=== PATIENT | female | born 1930 | race Caucasian/White ===

== ENCOUNTER → 2016-10-31 | Outpatient (CLI) | payer MEDICARE ==
[~2016-10-31] MED LIST: ACDPT PO; ACHD5005 PO; ALEN70TA47 PO; AMLO10TA82 PO; ASCO500T20 PO; BETA1TAB PO; CALC-656 PO; COSAMIN DS CAP1 EACH PO; CYAN500T44 PO; E400C PO; LOSA100T16 PO; MTP100TCR PO; NFAMINITAB PO; POTA10CA43 PO; POTA99TA7 PO; SOLI5TAB4 PO; TRIAMCINOLONE; WRF2.5T PO; WRF5T PO; ZINC50TA49 PO
--- OUTSIDE RECORDS SUMMARY | 2016-10-31 14:03 | XMS REPORT | Continuity of Care Document ---
Author Author [facility] Organization [facility] Address Unknown Phone Unavailable Care Team Providers Care Cleaning And Maintenance Worker Name Role Phone DAYLIN HULL MD PCP Insurance Providers Payer Name Policy Number Subscriber Name Relationship Wps Medicare [id number] Tiffanie De Luna 18 Self / Same As Patient Blue Cross [facility] Supp [id number] Tiffanie De Luna 18 Self / Same As Patient Advance Directives Directive Response Recorded Date/Time Advance Directives Yes 02/27/14 2:42pm Health Care Power of Embossing Machine Operator Helper No 02/27/14 2:42pm Organ Donor No 02/27/14 2:42pm Problems No problem information available. Medications Current Home Medications Medication Dose Units Route Directions Days/Qty Instructions Start Date Warfarin Sodium 5 Mg 5 Mg Oral Iv Tubing Change 01/18/12 Warfarin Sodium 2.5 Mg 2.5 Mg Oral Sun,Sun,Sun,,Sun01/18/12 Ascorbic Acid 500 Mg 500 Mg Oral Daily 01/18/12 Vitamin E 400 Unit 400 Unit Oral Daily 01/18/12 Amlodipine Besylate (Norvasc 10 Mg) 10 Mg 10 Mg Oral Daily 01/18/12 Metoprolol Succinate 100 Mg 100 Mg Oral Daily (1200) 01/18/12 Zinc Amino Acid Chelate 50 Mg 50 Mg Oral Daily 01/18/12 Losartan Potassium 100 Mg 200 Mg Oral Daily (1800) 01/18/12 Cyanocobalamin (Vitamin B-12) 500 Mcg 250 Mcg Oral Daily 01/18/12 Solifenacin 5 Mg 5 Mg Oral Daily 01/18/12 Potassium Chloride 10 Meq 10 Meq Oral Daily 09/17/12 Alendronate Sodium 70 Mg 70 Mg Oral Weekly TAKES ON Saturdays02/26/14 Vitamin C/Vitamin E 1 Tab 2 Tab Oral Daily 02/26/14 Glucosam/Chondroit/C/Manganese 1 Each 2 Cap Oral Daily 02/26/14 Calcium Carbonate/Vitamin D3 1 Each 1 Tab Oral Daily 02/26/14 Acetaminophen/Hydrocodone Bitart 1 Tab 1 Tab Oral Every 4HRS as needed for Pain 20 02/28/14 Social History Social History Problem Response Recorded Date/Time Alcohol Use Denies Use 02/27/2014 2:42pm Recreational Drug Use No 02/27/2014 2:42pm Recent Foreign Travel No 02/27/2014 2:42pm Recent Infectious Disease Exposure No 02/27/2014 2:42pm Hospitalization with Isolation Denies 02/27/2014 2:42pm Hospital Discharge Instructions No hospital discharge instructions. Plan of Care Prescriptions See Medication Section Functional Status No functional status results. Allergies, Adverse Reactions, Alerts No known allergies. Immunizations No immunization records. Vital Signs No known vital signs results. Results Laboratory Results Test Name Result Units Flags Reference Collection Date/Time Result Date/ Time Comments White Blood Count 5.7 10^3/uL 4.3-11.0 02/17/2016 1:36pm 02/17/2016 1: 43pm Red Blood Count 3.96 10^6/uL L 4.35-5.85 02/17/2016 1:36pm 02/17/2016 1: 43pm Hemoglobin 12.0 G/DL 11.5-16.0 02/17/2016 1:36pm 02/17/2016 1:43pm Hematocrit 37 % 35-52 02/17/2016 1:36pm 02/17/2016 1:43pm Mean Corpuscular Volume 94 FL 80-99 02/17/2016 1:36pm 02/17/2016 1: 43pm Mean Corpuscular Hemoglobin 30 PG 25-34 02/17/2016 1:36pm 02/17/2016 1: 43pm Mean Corpuscular Hemoglobin Concent 32 G/DL 32-36 02/17/2016 1:36pm 1:43pm Red Cell Distribution Width 14.4 % 10.0-14.5 02/17/2016 1:36pm 2015 1:43pm Platelet Count 252 10^3/uL 130-400 02/17/2016 1:36pm 02/17/2016 1:43pm Mean Platelet Volume 9.2 FL 7.4-10.4 02/17/2016 1:36pm 02/17/2016 1: 43pm Neutrophils (%) (Auto) 71 % 42-75 02/17/2016 1:36pm 02/17/2016 1:43pm Lymphocytes (%) (Auto) 17 % 12-44 02/17/2016 1:36pm 02/17/2016 1:43pm Monocytes (%) (Auto) 11 % 0-12 02/17/2016 1:36pm 02/17/2016 1:43pm Eosinophils (%) (Auto) 1 % 0-10 02/17/2016 1:36pm 02/17/2016 1:43pm Basophils (%) (Auto) 0 % 0-10 02/17/2016 1:36pm 02/17/2016 1:43pm Neutrophils # (Auto) 4.1 X 10^3 1.8-7.8 02/17/2016 1:36pm 02/17/2016 1: 43pm Lymphocytes # (Auto) 1.0 X 10^3 1.0-4.0 02/17/2016 1:36pm 02/17/2016 1: 43pm Monocytes # (Auto) 0.6 X 10^3 0.0-1.0 02/17/2016 1:36pm 02/17/2016 1: 43pm Eosinophils # (Auto) 0.1 10^3/uL 0.0-0.3 02/17/2016 1:36pm 02/17/2016 1 :43pm Basophils # (Auto) 0.0 10^3/uL 0.0-0.1 02/17/2016 1:36pm 02/17/2016 1: 43pm Sodium Level 141 MMOL/L 135-145 02/17/2016 1:36pm 02/17/2016 2:12pm Potassium Level 3.9 MMOL/L 3.6-5.0 02/17/2016 1:pm 02/17/2016 2:12pm Chloride Level 105 MMOL/L 98-107 02/17/2016 1:36pm 02/17/2016 2:12pm Carbon Dioxide Level 26 MMOL/L 21-32 02/17/2016 1:36pm 02/17/2016 2: 12pm Anion Gap 10 MMOL/L 5-14 02/17/2016 1:36pm 02/17/2016 2:12pm Blood Urea Nitrogen 15 MG/DL 7-18 02/17/2016 1:36pm 02/17/2016 2:12pm Creatinine 0.85 MG/DL 0.60-1.30 02/17/2016 1:36pm 02/17/2016 2:12pm BUN/Creatinine Ratio 18 02/17/2016 1:36pm 02/17/2016 2:12pm Estimat Glomerular Filtration Rate > 60 02/17/2016 1:36pm 2015 2:12pm GFR INTERPRETIVE DATA UNITS FOR ESTIMATED GFR (eGFR): mL/min/1.73 M2 REFERENCE RANGE FOR ESTIMATED GFR (eGFR) eGFR NORMAL eGFR >60 MODERATELY DECREASED eGFR 30-59 SEVERLY DECREASED eGFR 15-29 KIDNEY FAILURE <15 (OR DIALYSIS) Glucose Level 101 MG/DL 70-105 02/17/2016 1:36pm 02/17/2016 2:12pm Calcium Level 9.1 MG/DL 8.5-10.1 02/17/2016 1:3602/17/2016 2:12pm Total Bilirubin 0.5 MG/DL 0.1-1.0 02/17/2016 1:02/17/2016 2:12pm Alkaline Phosphatase 51 U/L 40-136 02/17/2016 1:pm 02/17/2016 2:12pm Aspartate Amino Transf (AST/SGOT) 22 U/L 5-34 02/17/2016 1:362015 2:12pm Alanine Aminotransferase (ALT/SGPT) 21 U/L 0-55 02/17/2016 1:3602/16 2:12pm Total Protein 6.8 G/DL 6.4-8.2 02/17/2016 1:02/17/2016 2:12pm Albumin 4.0 G/DL 3.2-4.5 02/17/2016 1:pm 02/17/2016 2:12pm Procedures No known history of procedures. Encounters Encounter Location Arrival/Admit Date Discharge/Depart Date Attending Provider Discharged Recurring [facility] 02/17/16 12:57pm 1:07pm ZURI LEE MD
--- NOTE | 2016-10-31 14:53 | Diagnostic Imaging Report ---
EXAMINATION: Three views of the right shoulder. INDICATION: Right shoulder pain. Swelling around the scapula. FINDINGS: There is superior subluxation of the humeral head abutting the undersurface of the acromion, suggestive of a full-thickness rotator cuff tear. There is no fracture or dislocation. Prominent degenerative subchondral sclerosis, some osteophyte formation, and joint space narrowing are seen at the glenohumeral joint. A subchondral cyst at the greater tuberosity is also seen. There is moderate degenerative change in the acromioclavicular joint with no significant inferior osteophytes. No radiopaque foreign body is seen. Incidental note is made of calcified granulomas in the right upper lung and right lung hilum. IMPRESSION: Advanced degenerative changes. Suggestion of rotator cuff injury. Dictated by: Dictated on workstation # [id number]
--- NOTE | 2016-10-31 14:57 | Diagnostic Imaging Report ---
EXAMINATION: Three views of the thoracic spine. INDICATION: Back pain. Scapular swelling. FINDINGS: There is a prominent S-shaped scoliosis with right convexity curvature in the mid thoracic spine. The alignment of the spinal line appears satisfactory. The vertebral body heights also appear maintained. There is suggestion of osteopenia. There are degenerative osteophytes seen projecting anteriorly from the mid to lower thoracic spine levels and degenerative endplate sclerotic changes are seen. The paraspinous soft tissues demonstrate cardiomegaly and calcified granulomas in the lungs. IMPRESSION: Prominent scoliosis and degenerative changes. Suggestion of osteopenia. Dictated by: Dictated on workstation # [id number]
== END ==
LOC: RAD 13:59
PROVIDERS: ATTEND Nurse Practitioner Family
DX: M25.511 Pain in right shoulder (principal); M41.9 Scoliosis, unspecified
CPT/HCPCS: 72072; 73030

== ENCOUNTER 2016-11-30 13:52 | Outpatient (RCR) | payer MEDICARE ==
--- OUTSIDE RECORDS SUMMARY | 2016-11-30 13:56 | XMS REPORT | Continuity of Care Document ---
Author Author [facility] Organization [facility] Address Unknown Phone Unavailable Care Team Providers Care Rehabilitation Aide Name Role Phone DAYLIN HULL MD PCP Insurance Providers Payer Name Policy Number Subscriber Name Relationship Wps Medicare [id number] Tiffanie De Luna 18 Self / Same As Patient Blue Cross [facility] Supp [id number] Tiffanie De Luna 18 Self / Same As Patient Advance Directives Directive Response Recorded Date/Time Advance Directives Yes 02/27/14 2:42pm Health Care Power of Furnace Combination Analyst No 02/27/14 2:42pm Organ Donor No 02/27/14 [...] Discharge/Depart Date Attending Provider Discharged Recurring [facility] 02/17/16 12:57pm 1:07pm ZURI LEE MD
[2016-11-30 14:11] LABS: BASOPHILS % (AUTO) 1 % (0-10); EOSINOPHILS # (AUTO) 0.1 10^3/uL (0.0-0.3); EOSINOPHILS % (AUTO) 1 % (0-10); LYMPHOCYTES # (AUTO) 1.3 X 10^3 (1.0-4.0); LYMPHOCYTES % (AUTO) 22 % (12-44); MEAN CORPUSCULAR HEMOGLOBIN 30 PG (25-34); MEAN CORPUSCULAR HGB CONC 32 G/DL (32-36); MEAN CORPUSCULAR VOLUME 95 FL (80-99); MEAN PLATELET VOLUME 9.3 FL (7.4-10.4); MONOCYTES # (AUTO) 0.6 X 10^3 (0.0-1.0); MONOCYTES % (AUTO) 11 % (0-12); NEUTROPHILS # (AUTO) 3.9 X 10^3 (1.8-7.8); NEUTROPHILS % (AUTO) 67 % (42-75); PLATELET COUNT 235 10^3/uL (130-400); RED BLOOD COUNT 4.21 10^6/uL (4.35-5.85); RED CELL DISTRIBUTION WIDTH 14.3 % (10.0-14.5); WHITE BLOOD COUNT 5.9 10^3/uL (4.3-11.0)
[2016-11-30 14:28] LABS: INR 2.7 (0.8-1.4); PROTHROMBIN TIME PATIENT 28.5 SEC (12.2-14.7)
[2016-11-30 14:39] LABS: ALBUMIN 4.4 G/DL (3.2-4.5); BILIRUBIN,TOTAL 0.5 MG/DL (0.1-1.0); CREATININE SERUM 1.04 MG/DL (0.60-1.30); POTASSIUM 4.2 MMOL/L (3.6-5.0); TOTAL PROTEIN 7.3 G/DL (6.4-8.2)
== END 2017-02-28 | disposition home or self-care (01) ==
LOC: ONC 13:52
PROVIDERS: ATTEND Internal Medicine Hematology & Oncology
DX: C50.411 Malignant neoplasm of upper-outer quadrant of right female breast (principal); Z17.0 Estrogen receptor positive status [ER+]; I10 Essential (primary) hypertension; I48.91 Unspecified atrial fibrillation; I25.10 Atherosclerotic heart disease of native coronary artery without angina pectoris; L71.9 Rosacea, unspecified; I49.5 Sick sinus syndrome; Z79.01 Long term (current) use of anticoagulants; Z79.811 Long term (current) use of aromatase inhibitors; Z79.899 Other long term (current) drug therapy
CPT/HCPCS: 36415; 80053; 85025; 85610; 99213

== ENCOUNTER → 2017-02-07 | Outpatient (CLI) | payer MEDICARE ==
--- NOTE | 2017-02-07 18:40 | Diagnostic Imaging Report ---
EXAMINATION: Left breast digital diagnostic mammogram with CAD. The current study was also evaluated with a Computer Aided Detection (CAD) system. INDICATION: History of right breast cancer. COMPARISON: 01/25/15. FINDINGS: The breasts are composed of heterogeneously dense parenchyma which may decrease mammographic sensitivity. There is vascular and scattered other benign-appearing calcifications. The previously seen asymmetry in the medial aspect of the left breast is less prominent compared to the prior exam suggestive of summation artifact of parenchyma. IMPRESSION: No mammographic evidence of malignancy. ACR BI-RADS Category 2: Benign findings. Result letter will be mailed to the patient. Note: At least 10% of breast cancer is not imaged by mammography. Dictated by: Dictated on workstation # [id number]
== END ==
LOC: RAD 12:59
PROVIDERS: ATTEND Internal Medicine Hematology & Oncology
DX: C50.411 Malignant neoplasm of upper-outer quadrant of right female breast (principal)

== ENCOUNTER 2017-04-14 20:30 | Observation (INO) | payer MEDICARE, OTHER ==
[~2017-04-14] VITALS: Ht 154.9 cm; Wt 53.6 kg
[2017-04-14] MEDS ORDERED: EXEM25TA4 PO (20:51)
[2017-04-14] MEDS ORDERED: OMEP20CA12 PO (20:51)
[2017-04-14] MEDS ORDERED: FURO20TA4 PO (20:51)
--- NOTE | 2017-04-14 21:00 | ED General ---
General Chief Complaint: Head/Cervical Problems Stated Complaint: BLURRY VISION Nursing Triage Note: headache, difficulty sleeping, nausea since 04/11/17 Nursing Sepsis Screen: No Definite Risk Source of Information: Patient Exam Limitations: No Limitations History of Present Illness Time Seen by Provider: 20:57 Initial Comments Patient is brought to the emergency room by her adult granddaughter who drove in from [place] to check on her due to concerns of recent illness. Patient presents to ER with a chief complaint of occipital headache midline that is a brief shooting pain. This only lasts a few seconds before resolving. This began last night. She's had nausea but no vomiting. She's also had floaters in her vision. When she describes these "floaters" she states "there are several patterns, when I look at my chair there are red octagon patterns. When I look at other things I see a school of black and red fish. When I look at other things I see patterns of X's like right now, when I look in your face, ear face is covered with little black bugs that are crawling"she also states "I also hear music in my head. It's violin and Cello and they're playing [employer] songs. If I want the pitch to go up I just think about it and they go up" Timing/Duration: 1-2 Days Severity: Moderate Associated Systoms: Headaches, Nausea/Vomiting Allergies and Home Medications Allergies Coded Allergies: No Known Drug Allergies (Unverified , 01/18/12) Home Medications Alendronate Sodium 70 Mg Tablet, 70 MG PO WEEKLY, (Reported) TAKES ON SATURDAYS Amlodipine Besylate 10 Mg Tablet, 10 MG PO DAILY, (Reported) Ascorbic Acid 500 Mg Tablet, 500 MG PO DAILY, (Reported) Calcium Carbonate/Vitamin D3 1 Each Tablet, 1 TAB PO DAILY, (Reported) Cyanocobalamin (Vitamin B-12) 500 Mcg Tablet, 250 MCG PO DAILY, (Reported) Exemestane 25 Mg Tablet, #90 (Reported) Furosemide 20 Mg Tablet, #45 (Reported) Glucosam/Chondroit/C/Manganese 1 Each Capsule, 2 CAP PO DAILY, (Reported) Hydrocodone Bit/Acetaminophen 1 Tab Tab, 1 TAB PO Q4H PRN for PAIN, #20 Ref 2 Prescribed by: HELEN CALDERON on 02/28/14 1137 Losartan Potassium 100 Mg Tablet, 200 MG PO DAILY (1800), (Reported) Metoprolol Succinate 100 Mg Tab.sr.24h, 100 MG PO DAILY (1200), (Reported) Omeprazole 20 Mg Capsule.dr, #90 (Reported) Potassium Chloride 10 Meq Capsule.sa, 10 MEQ PO DAILY, (Reported) Solifenacin Succinate 5 Mg Tablet, 5 MG PO DAILY, (Reported) Vitamin C/Vitamin E 1 Tab Tab, 2 TAB PO DAILY, (Reported) Vitamin E Acetate 400 Unit Capsule, 400 UNIT PO DAILY, (Reported) Warfarin Sod 5 Mg Tab, 5 MG PO TU,SUN, (Reported) Warfarin Sod 2.5 Mg Tab, 2.5 MG PO SUN,MON,WED,THUR,FRI, (Reported) Zinc Amino Acid Chelate 50 Mg Tablet, 50 MG PO DAILY, (Reported) Constitutional: see HPI EENTM: see HPI Respiratory: no symptoms reported Cardiovascular: no symptoms reported Genitourinary: no symptoms reported Musculoskeletal: no symptoms reported Skin: no symptoms reported Psychiatric/Neurological: No Symptoms Reported Hematologic/Lymphatic: No Symptoms Reported Past Jmyysfh-Ccwdik-Dlajsl Hx Patient Social History Alcohol Use: Denies Use Recreational Drug Use: No Smoking Status: Never a Smoker 2nd Hand Smoke Exposure: No Recent Foreign Travel: No Contact w/Someone Who Travel: No Recent Infectious Disease Expo: No Recent Hopitalizations: No Immunizations Up To Date Tetanus Booster (TDap): Less than 5yrs Date of Pneumonia Vaccine: Sep 17, 2009 Date of Influenza Vaccine: Jul 25, 2012 Seasonal Allergies Seasonal Allergies: No Surgeries HX Surgeries: Yes Surgeries: Breast Respiratory Hx Respiratory Disorders: Yes (HAD RIGHT MIDDLE LOBE REMOVED DUT TO INFECTION) Cardiovascular Hx Cardiac Disorders: Yes Cardiac Disorders: Atrial Fibrillation, Hypertension Neurological Hx Neurological Disorders: No Reproductive System : No Hx Reproductive Disorders: No Sexually Transmitted Disease: No HIV/AIDS: No ASSISTANT PORTFOLIO MANAGER History: Menopausal Genitourinary Hx Genitourinary Disorders: No Gastrointestinal Hx Gastrointestinal Disorders: Yes Gastrointestinal Disorders: Gastroesophageal Reflux Musculoskeletal Hx Musculoskeletal Disorders: No Musculoskeletal Disorders: Arthritis Endocrine Hx Endocrine Disorders: No HEENT HX ENT Disorders: No HEENT Disorders: Cataract Cancer Hx Cancer: No Cancer: Breast Psychosocial Hx Psychiatric Problems: No Integumentary HX Skin/Integumentary Disorder: No Blood Transfusions Hx Blood Disorders: No Adverse Reaction to a Blood Tr: No Family Medical History Family Medial History: Cancer DAUGHTER (OVARIAN) Family history: Arthritis 19 FATHER 19 MOTHER G8 BROTHER Family history: Cardiovascular disease 19 FATHER 19 MOTHER G8 BROTHER Heart disease 19 FATHER 19 MOTHER G8 BROTHER Myocardial infarction 19 FATHER 19 MOTHER G8 BROTHER Stroke 19 FATHER 19 MOTHER No Family History of: Abdominal aortic aneurysm Alcoholism Family history: Asthma Family history: Breast disease Family history: Diabetes mellitus Family history: Gastrointestinal disease Family history: Hypertension Family history: Thyroid disorder Hereditary disease History of - anemia History of - respiratory disease Kidney disease Prostate cancer Psychotic disorder Seizure disorder Physical Exam Vital Signs Vital Sign - Last 12Hours 04/14/17 20:51 Temp 98.1 Pulse 69 Resp 18 B/P (MAP) 165/70 Pulse Ox 94 O2 Delivery Room Air Capillary Refill : Less Than 3 Seconds General Appearance: No Apparent Distress, WD/WN Eyes: Bilateral Eye EOMI, Bilateral Eye Normal Inspection, Bilateral Eye PERRL HEENT: PERRL/EOMI, TMs Normal Neck: Full Range of Motion, Normal Inspection Respiratory: No Accessory Muscle Use, No Respiratory Distress Cardiovascular: Regular Rate, Rhythm, Normal Peripheral Pulses Gastrointestinal: Normal Bowel Sounds, Non Tender, Soft Extremity: Normal Capillary Refill, Normal Inspection Neurologic/Psychiatric: Alert, Oriented x3, No Motor/Sensory Deficits, Other ( she has oriented to person place time and situation but does seem to be having both auditory and visual hallucinations.) Skin: Normal Color, Warm/Dry Progress/Results/Core Measures Results/Orders Lab Results Laboratory Tests Test 04/14/17 20:45 04/14/17 21:00 Range/Units White Blood Count 8.4 4.3-11.0 10^3/uL Red Blood Count 4.28 L 4.35-5.85 10^6/uL Hemoglobin 13.1 11.5-16.0 G/DL Hematocrit 41 35-52 % Mean Corpuscular Volume 95 80-99 FL Mean Corpuscular Hemoglobin 31 25-34 PG Mean Corpuscular Hemoglobin Concent 32 32-36 G/DL Red Cell Distribution Width 14.0 10.0-14.5 % Platelet Count 232 130-400 10^3/uL Mean Platelet Volume 10.3 7.4-10.4 FL Neutrophils (%) (Auto) 64 42-75 % Lymphocytes (%) (Auto) 23 12-44 % Monocytes (%) (Auto) 13 H 0-12 % Eosinophils (%) (Auto) 1 0-10 % Basophils (%) (Auto) 0 0-10 % Neutrophils # (Auto) 5.3 1.8-7.8 X 10^3 Lymphocytes # (Auto) 1.9 1.0-4.0 X 10^3 Monocytes # (Auto) 1.1 H 0.0-1.0 X 10^3 Eosinophils # (Auto) 0.1 0.0-0.3 10^3/uL Basophils # (Auto) 0.0 0.0-0.1 10^3/uL Erythrocyte Sedimentation Rate 14 0-30 MM/HR Prothrombin Time 21.1 H 12.2-14.7 SEC INR Comment 1.9 H 0.8-1.4 Sodium Level 138 135-145 MMOL/L Potassium Level 4.6 3.6-5.0 MMOL/L Chloride Level 105 98-107 MMOL/L Carbon Dioxide Level 20 L 21-32 MMOL/L Anion Gap 13 5-14 MMOL/L Blood Urea Nitrogen 26 H 7-18 MG/DL Creatinine 1.35 H 0.60-1.30 MG/DL Estimat Glomerular Filtration Rate 37 BUN/Creatinine Ratio 19 0-20 Glucose Level 128 H 70-105 MG/DL Calcium Level 10.3 H 8.5-10.1 MG/DL Total Bilirubin 0.5 0.1-1.0 MG/DL Aspartate Amino Transf (AST/SGOT) 26 5-34 U/L Alanine Aminotransferase (ALT/SGPT) 17 0-55 U/L Alkaline Phosphatase 52 40-136 U/L Troponin I < 0.30 <0.30 NG/ML Total Protein 7.8 6.4-8.2 GM/DL Albumin 4.3 3.2-4.5 GM/DL Thyroid Stimulating Hormone (TSH) 2.01 0.35-4.94 UIU/ML Urine Color YELLOW Urine Clarity CLEAR Urine pH 5 5-9 Urine Specific [place] 1.020 1.016-1.022 Urine Protein 2+ H NEGATIVE Urine Glucose (UA) NEGATIVE NEGATIVE Urine Ketones 1+ H NEGATIVE Urine Nitrite NEGATIVE NEGATIVE Urine Bilirubin NEGATIVE NEGATIVE Urine Urobilinogen 1 NORMAL MG/DL Urine Leukocyte Esterase 3+ H NEGATIVE Urine RBC (Auto) 2+ H NEGATIVE Urine RBC RARE /HPF Urine WBC 5-10 H /HPF Urine Crystals NONE /LPF Urine Bacteria TRACE /HPF Urine Casts NONE /LPF Urine Mucus N /LPF Urine Culture Indicated YES My Orders Orders - TRAM RAPHAEL APRN Cbc With Automated Diff (04/14/17 20:56) Comprehensive Metabolic Panel (04/14/17 20:56) Saline Lock/Iv-Start (04/14/17 20:56) Thyroid Stimulating Hormone (04/14/17 20:56) Erythrocyte Sedimentation Rate (04/14/17 20:56) Ct Head Wo (04/14/17 20:56) Chest 1 View, Ap/Pa Only (04/14/17 20:56) Troponin I (04/14/17 20:56) Ua Culture If Indicated (04/14/17 20:56) Protime With Inr (04/14/17 21:22) Urine Culture (04/14/17 21:00) Vital Signs/I&O Vital Sign - Last 12Hours 04/14/17 20:51 Temp 98.1 Pulse 69 Resp 18 B/P (MAP) 165/70 Pulse Ox 94 O2 Delivery Room Air Blood Pressure Mean: 101 Diagnostic Imaging Diagonstic Imaging: CT Comments NAME: NAHID ACEVEDO [facility] REC#: [id number] PT STATUS: REG ER : 1930 PHYSICIAN: TRAM RAPHAEL APRN ADMIT DATE: 04/14/17/ER Draft Date of Exam:04/14/17 CT HEAD WO PROCEDURE: CT head without contrast. TECHNIQUE: Multiple contiguous axial images were obtained through the brain without the use of intravenous contrast. INDICATION: Blurry vision. COMPARISON: 05/23/2016. FINDINGS: No hyperdense hemorrhage or space-occupying mass. No hydrocephalus or midline shift. Symmetric prominence of the ventricles and cortical sulci is compatible with age-appropriate atrophy. No isolated lobar atrophy. No territorial loss of snell-white matter differentiation to indicate acute/subacute infarct. Periventricular white matter hypoattenuation is ill-defined and likely due to chronic microvascular ischemic disease. The mastoid air cells are clear. Paranasal sinuses are normal. No focal osseous abnormality of the calvarium. IMPRESSION: 1. No acute intracranial process. 2. Generalized atrophy with chronic microvascular ischemic disease. Dictated on workstation # [id number] Dict: 04/14/178 Trans: [id number] [facility] [id number] Interpreted by: MICHEAL HERRERA MD Electronically signed by: Departure Communication Progress Notes Discussed the case with Dr. Medina. We will admit the patient, hydrate, IV antibiotics. Impression Impression: Primary Impression: Urinary tract infection Additional Impressions: auditory and visual hallucinations Acute renal insufficiency Disposition: ADMITTED INPATIENT Condition: Stable Decision to Admit Reason: Admit from ER (General) Decision to Admit/Date: Apr 14, 2017 Time/Decision to Admit Time: 21:57 Departure-Patient Inst. Referrals: AMANDEEP MEDINA MD (PCP/Family) Primary Care Physician TRAM RAPHAEL APRN Apr 14, 2017 21:00
[2017-04-14 21:02] LABS: BASOPHILS % (AUTO) 0 % (0-10); EOSINOPHILS # (AUTO) 0.1 10^3/uL (0.0-0.3); EOSINOPHILS % (AUTO) 1 % (0-10); LYMPHOCYTES # (AUTO) 1.9 X 10^3 (1.0-4.0); LYMPHOCYTES % (AUTO) 23 % (12-44); MEAN CORPUSCULAR HEMOGLOBIN 31 PG (25-34); MEAN CORPUSCULAR HGB CONC 32 G/DL (32-36); MEAN CORPUSCULAR VOLUME 95 FL (80-99); MEAN PLATELET VOLUME 10.3 FL (7.4-10.4); MONOCYTES # (AUTO) 1.1 X 10^3 (0.0-1.0); MONOCYTES % (AUTO) 13 % (0-12); NEUTROPHILS # (AUTO) 5.3 X 10^3 (1.8-7.8); NEUTROPHILS % (AUTO) 64 % (42-75); PLATELET COUNT 232 10^3/uL (130-400); RED BLOOD COUNT 4.28 10^6/uL (4.35-5.85); WHITE BLOOD COUNT 8.4 10^3/uL (4.3-11.0)
[2017-04-14 21:20] LABS: ALANINE AMINOTRANSFERASE 17 U/L (0-55); ALBUMIN 4.3 GM/DL (3.2-4.5); ANION GAP 13 MMOL/L (5-14); ASPARTATE AMINO TRANSFERASE 26 U/L (5-34); BILIRUBIN,TOTAL 0.5 MG/DL (0.1-1.0); BLOOD UREA NITROGEN 26 MG/DL (7-18); BUN/CREATININE RATIO 19 (0-20); CALCIUM 10.3 MG/DL (8.5-10.1); CARBON DIOXIDE 20 MMOL/L (21-32); CHLORIDE 105 MMOL/L (98-107); CREATININE SERUM 1.35 MG/DL (0.60-1.30); ERYTHROCYTE SEDIMENTATION RATE 14 MM/HR (0-30); GFR ESTIMATED 37; GLUCOSE 128 MG/DL (70-105); HEMOLYSIS 20 (-100-29); ICTERUS 0.8 (-100-1.9); LIPEMIA 16 (-100-49); POTASSIUM 4.6 MMOL/L (3.6-5.0); SODIUM 138 MMOL/L (135-145); TOTAL PROTEIN 7.8 GM/DL (6.4-8.2)
[2017-04-14 21:35] LABS: INR 1.9 (0.8-1.4); PROTHROMBIN TIME PATIENT 21.1 SEC (12.2-14.7)
[2017-04-14 21:39] LABS: KETONES,URINE 1+ (NEGATIVE); NITRITE,URINE NEGATIVE (NEGATIVE); PH,URINE 5 (5-9); PROTEIN,URINE 2+ (NEGATIVE)
[2017-04-14 21:40] LABS: BILIRUBIN,URINE NEGATIVE (NEGATIVE); LEUKOCYTE ESTERASE ,URINE 3+ (NEGATIVE); UROBILINOGEN,URINE 1 MG/DL (NORMAL)
[2017-04-14 21:45] LABS: THYROID STIMULATING HORMONE 2.01 UIU/ML (0.35-4.94); TROPONIN I < 0.30 NG/ML (<0.30)
--- NOTE | 2017-04-14 21:51 | Diagnostic Imaging Report ---
PROCEDURE: CT head without contrast. TECHNIQUE: Multiple contiguous axial images were obtained through the brain without the use of intravenous contrast. INDICATION: Blurry vision. COMPARISON: 05/23/2016. FINDINGS: No hyperdense hemorrhage or space-occupying mass. No hydrocephalus or midline shift. Symmetric prominence of the ventricles and cortical sulci is compatible with age-appropriate atrophy. No isolated lobar atrophy. No territorial loss of snell-white matter differentiation to indicate acute/subacute infarct. Periventricular white matter hypoattenuation is ill-defined and likely due to chronic microvascular ischemic disease. The mastoid air cells are clear. Paranasal sinuses are normal. No focal osseous abnormality of the calvarium. IMPRESSION: 1. No acute intracranial process. 2. Generalized atrophy with chronic microvascular ischemic disease. Dictated by: Dictated on workstation # [id number]
--- NOTE | 2017-04-14 21:58 | Diagnostic Imaging Report ---
INDICATION: Strokelike symptoms, blurry vision. Stroke protocol. COMPARISON: 05/23/2016. EXAMINATION: Single view of the chest was obtained. FINDINGS: Stable cardiomegaly with pulmonary vascular redistribution. No pleural effusion or pneumothorax. Scattered calcified pulmonary granulomas. No focal airspace consolidation. IMPRESSION: Stable examination from 05/23/2016 with cardiomegaly. No acute cardiopulmonary process. Dictated by: Dictated on workstation # [id number]
[2017-04-14] MEDS ORDERED: cefTRIAXone 1 GM (ROCEPHIN) VIAL ONE (22:48)
[2017-04-14] MEDS ORDERED: NS (IVPB) 50 ML ONE (22:49)
[2017-04-14] MEDS ORDERED: cefTRIAXone INJECTION 1,000 MG in NS (IVPB) 50 ML IV ONE (23:00)
[2017-04-14 23:05] VITALS: BP 175/75
[2017-04-15] MEDS: NS IV 1000 ML 1,000 ML IV SCH ×3 (00:59→22:48)
[2017-04-15 04:00] VITALS: BP 157/58
[2017-04-15] MEDS ORDERED: MELA1TAB20 PO (06:23)
[2017-04-15] MEDS ORDERED: TRAM50TA2 PO (06:23)
[2017-04-15] MEDS ORDERED: L GA1CAP2 PO (06:23)
[2017-04-15 06:26] LABS: ANION GAP 9 MMOL/L (5-14); BLOOD UREA NITROGEN 21 MG/DL (7-18); BUN/CREATININE RATIO 25 (0-20); CALCIUM 9.1 MG/DL (8.5-10.1); CARBON DIOXIDE 23 MMOL/L (21-32); CHLORIDE 107 MMOL/L (98-107); CREATININE SERUM 0.84 MG/DL (0.60-1.30); GFR ESTIMATED > 60; GLUCOSE 91 MG/DL (70-105); HEMOLYSIS 3 (-100-29); ICTERUS 0.7 (-100-1.9); LIPEMIA -3 (-100-49); SODIUM 139 MMOL/L (135-145)
[2017-04-15 08:00] VITALS: BP 142/88
--- NOTE | 2017-04-15 11:12 | History & Physicial ---
History of Present Illness History of Present Illness Reason for visit/HPI PT REPORTS THAT SHE HAD RECENTLY BEEN ILL, WAS FEELING POORLY ON SUNDAY OF LAST WEEK, HAD NAUSEA AND EMESIS, WAS UNABLE TO SLEEP AT ALL ON SUNDAY AND HAD A RESTLESS DAY AND NIGHT ON SUNDAY. SHE REPORTS THAT SHE STARTED TO SEE "FLOATERS" OF [employer], X'S ON HER CHAIR, AND OCTAGONS WITH RED AROUND THE EDGES. SHE ALSO REPORTS THAT SHE STARTED TO HEAR VIOLINS AND CELLO'S WELL DRUZE HYMNS. SHE REPORTS THAT SHE HAS NOT BEEN HEARING THEM MUCH IN THE HOSPITAL SINCE SHE STARTED ON THE IV FLUIDS. Date of Admission Apr 14, 2017 at 21:55 Time Seen by Provider: 09:10 I consulted on this patient on 04/15/17 0910 Attending Physician Amandeep Medina MD Admitting Physician Amandeep Medina MD Consult Allergies and Home Medications Allergies Coded Allergies: No Known Drug Allergies (Unverified , 01/18/12) Home Medications Alendronate Sodium 70 Mg Tablet, 70 MG PO WEEKLY, (Reported) TAKES ON SATURDAYS Amlodipine Besylate 10 Mg Tablet, 10 MG PO DAILY, (Reported) Ascorbic Acid 500 Mg Tablet, 500 MG PO DAILY, (Reported) Calcium Carbonate/Vitamin D3 1 Each Tablet, 1 TAB PO DAILY, (Reported) Cyanocobalamin (Vitamin B-12) 500 Mcg Tablet, 250 MCG PO DAILY, (Reported) Exemestane 25 Mg Tablet, 25 MG PO DAILY, #90 (Reported) Furosemide 20 Mg Tablet, 20 MG PO Q48H, #45 (Reported) Glucosam/Chondroit/C/Manganese 1 Each Capsule, 2 CAP PO DAILY, (Reported) Losartan Potassium 100 Mg Tablet, 200 MG PO DAILY (1800), (Reported) Melatonin/Pyridoxine HCl (B6) 1 Each Tab.mphase, 1 EACH PO HS, (Reported) Metoprolol Succinate 100 Mg Tab.sr.24h, 100 MG PO DAILY (1200), (Reported) Omeprazole 20 Mg Capsule.dr, 20 MG PO DAILY, #90 (Reported) Potassium Chloride 10 Meq Capsule.sa, 10 MEQ PO DAILY, (Reported) Tramadol HCl 50 Mg Tablet, 50 MG PO Q4H PRN for PAIN-MILD, #20 (Reported) 1 OR 2 TAB EVERY 4 TO-6 HOURS Vitamin C/Vitamin E 1 Tab Tab, 2 TAB PO DAILY, (Reported) Vitamin E Acetate 400 Unit Capsule, 400 UNIT PO DAILY, (Reported) Warfarin Sod 5 Mg Tab, 5 MG PO TUES,THURS,SAT, (Reported) Warfarin Sod 2.5 Mg Tab, 2.5 MG PO SUN,MON,WED,FRI, (Reported) Zinc Amino Acid Chelate 50 Mg Tablet, 50 MG PO DAILY, (Reported) l Gasseri/B Bifidum/B Longum 1 Each Capsule, 1 EACH PO DAILY, (Reported) Past [id number] Hx Patient Social History Marrital Status: Living Status: LIVES AT HOME ALONE Employed/Student: retired Alcohol Use: Denies Use Recreational Drug Use: No Smoking Status: Never a Smoker 2nd Hand Smoke Exposure: No Physical Abuse Screen: No Sexual Abuse: No Recent Foreign Travel: No Contact w/other who traveled: No Recent Hopitalizations: No Recent Infectious Disease Expo: No Immunizations Up To Date Tetanus Booster (TDap): Less than 5yrs Date of Pneumonia Vaccine: Aug 05, 2015 Date of Influenza Vaccine: Jul 25, 2012 Seasonal Allergies Seasonal Allergies: No Surgeries HX Surgeries: Yes Surgeries: Breast Respiratory Hx Respiratory Disorders: Yes (HAD RIGHT MIDDLE LOBE REMOVED DUT TO INFECTION) Cardiovascular Hx Cardiovascular Disorders: Yes Cardiac Disorders: Atrial Fibrillation, Hypertension Neurological Hx Neurological Disorders: No Reproductive System : No Hx Reproductive Disorders: No Sexually Transmitted Disease: No HIV/AIDS: No Genitourinary Hx Genitourinary Disorders: No Gastrointestinal Hx Gastrointestinal Disorders: Yes Gastrointestinal Disorders: Gastroesophageal Reflux Musculoskeletal Hx Musculoskeletal Disorders: No Musculoskeletal Disorders: Arthritis Endocrine Hx Endocrine Disorders: No HEENT HX ENT Disorders: No HEENT Disorders: Cataract, Macular Degeneration Hearing Impairment: Hearing Aide Right, Hearing Aide Left Cancer Hx Cancer: No Cancer: Breast Psychosocial Hx Psychiatric Problems: No Integumentary HX Skin/Integumentary Disorder: No Blood Transfusions Hx Blood Disorders: No Adverse Reaction to a Blood Tr: No Reviewed Nursing Assessment Reviewed/Agree w Nursing PMH: Yes Family Medical History Significant Family History: Heart Disease, Cancer, Hypertension, Stroke Family Hx: Cancer DAUGHTER (OVARIAN) Family history: Arthritis 19 FATHER 19 MOTHER G8 BROTHER Family history: Cardiovascular disease 19 FATHER 19 MOTHER G8 BROTHER Heart disease 19 FATHER 19 MOTHER G8 BROTHER Myocardial infarction 19 FATHER 19 MOTHER G8 BROTHER Stroke 19 FATHER 19 MOTHER No Family History of: Abdominal aortic aneurysm Alcoholism Family history: Asthma Family history: Breast disease Family history: Diabetes mellitus Family history: Gastrointestinal disease Family history: Hypertension Family history: Thyroid disorder Hereditary disease History of - anemia History of - respiratory disease Kidney disease Prostate cancer Psychotic disorder Seizure disorder Constitutional: No chills, No diaphoresis, No fever, malaise, weakness EENTM: hearing loss, No hoarseness, No mouth pain, No throat swelling Respiratory: No cough, No dyspnea on exertion, No short of breath Cardiovascular: No chest pain, No edema, No palpitations Gastrointestinal: No abdominal pain, No constipation, No diarrhea Genitourinary: no symptoms reported : Yes Musculoskeletal: No back pain, No gout, No joint pain, No muscle pain, muscle weakness Skin: No change in color Psychiatric/Neurological: Denies Anxiety, Denies Depressed, Other (SEE HPI) All Other Systems Reviewed Negative Unless Noted: Yes Physical Exam Vital Signs Vital Sign - Last 12Hours 04/14/17 20:51 Temp 98.1 Pulse 69 Resp 18 B/P (MAP) 165/70 Pulse Ox 94 O2 Delivery Room Air Capillary Refill : Less Than 3 Seconds General Appearance: No Apparent Distress, WD/WN HEENT: PERRL/EOMI, Pharynx Normal Neck: Full Range of Motion, Supple Respiratory: Chest Non Tender, Lungs Clear, Normal Breath Sounds, No Accessory Muscle Use Cardiovascular: Regular Rate, Rhythm, Other (FAINT CAROTID BRUITS BILATERALLY) Gastrointestinal: Normal Bowel Sounds, No Organomegaly, No Pulsatile Mass, Non Tender, Soft Rectal: Deferred Back: Other (KYPHOSIS) Extremity: Normal Capillary Refill, Non Tender, No Calf Tenderness, No Pedal Edema Neurologic/Psychiatric: Alert, Oriented x3, No Motor/Sensory Deficits, Normal Mood/Affect, lead architect II-XII Norm as Tested Skin: Normal Color, Warm/Dry Lymphatic: No Adenopathy Assessment/Plan Assessment and Plan URINARY TRACT INFECTION MILD DEHYDRATION MILD RENAL INSUFFICIENCY VISUAL HALLUCINATIONS AUDITORY HALLUCINATIONS DELIRIUM HYPERTENSION INSOMNIA CHRONIC ANTICOAGULATION UTI - CONTINUE WITH IV ROCEPHIN, MONITOR URINALYSIS CULTURE REPORT. MILD DEHYDRATION WITH MILD RENAL INSUFFICIENCY - IMPROVING WITH HYDRATION, CONTINUE WITH IV FLUIDS AT CURRENT RATE. VISUAL AND AUDITORY HALLUCINATIONS - SUSPECT DUE TO DELIRIUM FROM ACUTE GASTROENTERITIS PT HAD EARLIER LAST WEEK - SHOULD IMPROVE WITH HYDRATION, SUPPORTIVE CARE. DISCUSSED NEED FOR PATIENT TO HAVE CAROTID ULTRASOUND DUE TO MILD CAROTID BRUIT - THIS SHOULD ALSO LET US KNOW IF THERE IS ANY POSSIBILITY THIS MAY BE DUE TO A SOFT CAROTID PLAQUE THAT HAS BROKEN OFF, BUT HER CT SCAN WAS NEGATIVE FOR ANY ACUTE STROKE. RESUME HOME MEDICATION FOR HYPERTENSION AND INSOMNIA DISCUSSED NEED FOR PT TO STOP DRIVING, NEED TO GET IN-HOME CARE FOR PATIENT. DVT PROPHYLAXIS WITH LOVENOX AND SCD'S NOT STARTED AT THIS TIME DUE TO PLAN FOR SHORT STAY AND PT IS ON COUMADIN THERAPY. Problems: Admission Diagnosis URINARY TRACT INFECTION MILD DEHYDRATION MILD RENAL INSUFFICIENCY VISUAL HALLUCINATIONS AUDITORY HALLUCINATIONS DELIRIUM HYPERTENSION INSOMNIA CHRONIC ANTICOAGULATION Clinical Quality Measures DVT/VTE Risk/Contraindication: Risk Factor Score Per Nursin RFS Level Per Nursing on Admit: 1=Low/No VTE PPX AMANDEEP MEDINA MD Apr 15, 2017 11:12
[2017-04-15] MEDS ORDERED: amLODIPine 10 MG (NORVASC) TAB PO SCH (11:15)
[2017-04-15] MEDS ORDERED: PATIENT MAY USE OWN MED,SINGLE MED PO SCH (11:15)
[2017-04-15] MEDS ORDERED: meTOprolol SUCCINATE 100 MG (TOPROL XL) TAB PO SCH (11:15)
[2017-04-15] MEDS ORDERED: PATIENT MAY USE OWN MEDS, ALL MC SCH (11:15)
[2017-04-15] MEDS ORDERED: PANTOPRAZOLE 20 MG TABLET (PROTONIX) PO SCH (11:15)
[2017-04-15] MEDS: CYANOCOBALAMIN 500 MCG TAB (VITAMIN B-12) PO SCH (11:59)
[2017-04-15 12:30] VITALS: BP 164/71
[2017-04-15 16:00] VITALS: BP 146/68
[2017-04-15] MEDS ORDERED: warFARin 5 MG (COUMADIN) TAB PO SCH (18:00)
[2017-04-15] MEDS ORDERED: warFARin 2.5 MG (COUMADIN) TAB PO SCH (18:00)
[2017-04-15 20:00] VITALS: BP 157/77
[2017-04-15] MEDS ORDERED: MELATONIN PO SCH (21:00)
[2017-04-15] MEDS ORDERED: LEMON BALM PO SCH (21:00)
[2017-04-15] MEDS ORDERED: cefTRIAXone INJECTION 1,000 MG in NS (IVPB) 50 ML IV SCH (23:45)
[2017-04-16] VITALS: BP 156/81
[2017-04-16 04:35] VITALS: BP 136/66
[2017-04-16] MEDS: NS IV 1000 ML 1,000 ML IV SCH (05:00)
[2017-04-16] MEDS ORDERED: OMEPRAZOLE 20 MG (PriLOSEC) CAP PO SCH (07:00)
[2017-04-16] MEDS ORDERED: KCL 10 MEQ TAB (MICRO K) PO SCH (07:00)
[2017-04-16] MEDS ORDERED: meTOprolol SUCCINATE 100 MG (TOPROL XL) TAB PO SCH (08:00)
[2017-04-16 08:11] VITALS: BP 147/83
[2017-04-16] MEDS ORDERED: amLODIPine 10 MG (NORVASC) TAB PO SCH (09:00)
[2017-04-16] MEDS ORDERED: LOSARTAN 100 MG PO SCH (09:00)
[2017-04-16] MEDS ORDERED: LOSARTAN 50 MG (COZAAR) TAB PO SCH (09:00)
[2017-04-16] MEDS: CYANOCOBALAMIN 500 MCG TAB (VITAMIN B-12) PO SCH (09:26)
[2017-04-16] MEDS ORDERED: CEPH-507 PO (09:54)
--- NOTE | 2017-04-16 09:57 | D/C HH Face to Face Order ---
Discharge Inst-to Home Health Patient Instructions Patient Instructions/FollowUp: one week follow up with [facility] [place], [place] DISCHARGE ORDERS Allergies: Coded Allergies: No Known Drug Allergies (Unverified , 01/18/12) Height (Feet): 5 Height (Inches): 1.00 Weight (Pounds): 118 Weight (Ounces): 2.0 Home Health Need/Face to Face Reason Pt Homebound pt does not drive, does not have local family able to help her to get out of the house easily I Have Seen Pt [id number]: Yes Date of Face to Face: Apr 16, 2017 Discharged To: Home Diagnosis/Conditions HH Order: urinary tract infection dehydration weakness hypertension Consult/Follow Up/New Order *I certify that based on my findings, the following services are medically necessary Home Health Services: Services: Nursing Services, Physical Therapy-Evaluate & Treat My clinical findings support the need for the above services; see Diagnosis. [facility] Orders check labs, pt/inr on of this week nursing to check repeat urinalysis in 10 days physical therapy to do home safety eval, strengthening therapies Dicharge Diet: Regular Diet Daily Activity as Tolerated: Yes Discharge Medications: New, Converted, or Re-newed RX: Transmited to Pharmacy I certify that this patient is under my care and that I, a nurse practitioner or a physician; a talent assistant working with me, had a face to face encounter that - meets the physician face to face encounter requirements with this patient as dated. Medication List: Active Scripts Active Keflex (Cephalexin) 500 Mg Capsule 500 Mg PO TID 5 Days Reported Tramadol HCl 50 Mg Tablet 50 Mg PO Q4H PRN 1 OR 2 TAB EVERY 4 TO-6 HOURS [employer] [facility] Capsule (l Gasseri/B Bifidum/B Longum) 1 Each Capsule 1 Each PO DAILY Melatonin 10 mg Tablet (Melatonin/Pyridoxine HCl (B6)) 1 Each Tab.mphase 1 Each PO HS Exemestane 25 Mg Tablet 25 Mg PO DAILY Omeprazole 20 Mg Capsule.dr 20 Mg PO DAILY Furosemide 20 Mg Tablet 20 Mg PO Q48H Calcium 500 + D Tablet (Calcium Carbonate/Vitamin D3) 1 Each Tablet 1 Tab PO DAILY Cosamin Ds Capsule (Glucosam/Chondroit/C/Manganese) 1 Each Capsule 2 Cap PO DAILY Ocuvite (Vitamin C/Vitamin E) 1 Tab Tab 2 Tab PO DAILY Alendronate Sodium 70 Mg Tablet 70 Mg PO WEEKLY TAKES ON SATURDAYS Potassium Chloride 10 Meq Capsule.sa 10 Meq PO DAILY B-12 (Cyanocobalamin (Vitamin B-12)) 500 Mcg Tablet 250 Mcg PO DAILY Cozaar (Losartan Potassium) 100 Mg Tablet 200 Mg PO DAILY (1800) Zinc (Zinc Amino Acid Chelate) 50 Mg Tablet 50 Mg PO DAILY Toprol Xl 100MG (Metoprolol Succinate) 100 Mg Tab.sr.24h 100 Mg PO DAILY (1200) Norvasc Tablet (Amlodipine Besylate) 10 Mg Tablet 10 Mg PO DAILY Vitamin E 400 Unit Capsule 400 Unit PO DAILY Vitamin C 500 Mg (Ascorbic Acid) 500 Mg Tablet 500 Mg PO DAILY Coumadin 2.5 Mg (Warfarin Sodium) 2.5 Mg Tab 2.5 Mg PO SUN,MON,WED,FRI Coumadin 5 Mg (Warfarin Sodium) 5 Mg Tab 5 Mg PO TU,,SAT My orders: Orders - AMANDEEP MURGUIA MD Amlodipine Tablet (Norvasc Tablet) (04/15/17 11:15) Cyanocobalamin Tablet (Vitamin B-12 Tabl (04/15/17 11:15) Metoprolol Succinate (Xl) Tab (Toprol Xl (04/15/17 11:15) Warfarin Tablet (Coumadin Tablet) (04/15/17 18:00) Patient May Use Own Med,Single (Patient (04/15/17 11:15) Losartan Tablet (Cozaar Tablet) (04/16/17 09:00) Potassium Chloride (Tablet) (Klor Con Ta (04/16/17 07:00) Patient May Use Own Meds, All (Patient M (04/15/17 11:15) Vte Contraindication (04/15/17 11:24) Pantoprazole Tablet (Protonix Tablet) (04/15/17 11:15) Tramadol Tablet (Ultram Tablet) (04/15/17 11:45) Warfarin Tablet (Coumadin Tablet) (04/17/17 18:00) Patient's Own Med(Rx Use Only) (Patient' (04/15/17 21:00) Amlodipine Tablet (Norvasc Tablet) (04/16/17 09:00) Metoprolol Succinate (Xl) Tab (Toprol Xl (04/16/17 08:00) Omeprazole (Non-Formulary) (Prilosec (No (04/16/17 07:00) Warfarin Tablet (Coumadin Tablet) (04/15/17 18:00) Warfarin Tablet (Coumadin Tablet) (04/17/17 14:13) Patient May Use Own Med,Single (Patient (04/16/17 09:00) Us Carotid Ras Complete [id number] (04/16/17 11:19) Ceftriaxone Injection (Rocephin Injectio (04/16/17 10:00) D/C Home Health Face To Face (04/16/17 09:51) D/C With Home Health Services (04/16/17 09:51) Attending Discharge (04/16/17 09:51) AMANDEEP MURGUIA MD Apr 16, 2017 09:57
[2017-04-16] MEDS ORDERED: cefTRIAXone INJECTION 1,000 MG in NS (IVPB) 50 ML IV NR (10:00)
--- NOTE | 2017-04-16 10:01 | Discharge Summary ---
Diagnosis/Chief Complaint Date of Admission Apr 14, 2017 at 21:55 Date of Discharge Discharge Date: Apr 16, 2017 Discharge Time: 1130 Admission Diagnosis Admission Diagnosis URINARY TRACT INFECTION MILD DEHYDRATION MILD RENAL INSUFFICIENCY VISUAL HALLUCINATIONS AUDITORY HALLUCINATIONS DELIRIUM HYPERTENSION INSOMNIA CHRONIC ANTICOAGULATION Discharge Diagnosis URINARY TRACT INFECTION MILD DEHYDRATION MILD RENAL INSUFFICIENCY VISUAL HALLUCINATIONS AUDITORY HALLUCINATIONS DELIRIUM HYPERTENSION INSOMNIA CHRONIC ANTICOAGULATION Reason Hospital Visit PT REPORTS THAT SHE HAD RECENTLY BEEN ILL, WAS FEELING POORLY ON SUNDAY OF LAST WEEK, HAD NAUSEA AND EMESIS, WAS UNABLE TO SLEEP AT ALL ON SUNDAY AND HAD A RESTLESS DAY AND NIGHT ON SUNDAY. SHE REPORTS THAT SHE STARTED TO SEE "FLOATERS" OF [employer], X'S ON HER CHAIR, AND OCTAGONS WITH RED AROUND THE EDGES. SHE ALSO REPORTS THAT SHE STARTED TO HEAR VIOLINS AND CELLO[employer]S WELL [employer]UZE HYMNS. SHE REPORTS THAT SHE HAS NOT BEEN HEARING THEM MUCH IN THE HOSPITAL SINCE SHE STARTED ON THE IV FLUIDS. Discharge Summary Discharge Physical Examination Allergies: Coded Allergies: No Known Drug Allergies (Unverified , 01/18/12) Vitals & I&Os Vital Signs Date Time Temp Pulse Resp B/P (MAP) Pulse Ox O2 Delivery O2 Flow Rate FiO2 04/16/17 08:11 97.1 47 18 147/83 96 Room Air General Appearance: Alert, Oriented X3, Cooperative HEENT: Atraumatic, PERRLA Respiratory: Clear to Auscultation, Normal Air Movement Cardiovascular: Regular Rate, Other (ii/vi khari) Abdominal: Normal Bowel Sounds, Soft Extremities: No Clubbing, No Cyanosis Neuro: Strength at 5/5 X4 Ext, Cranial Nerves 3-12 NL Hospital Course URINARY TRACT INFECTION MILD DEHYDRATION MILD RENAL INSUFFICIENCY VISUAL HALLUCINATIONS AUDITORY HALLUCINATIONS DELIRIUM HYPERTENSION INSOMNIA CHRONIC ANTICOAGULATION UTI - CONTINUE WITH IV ROCEPHIN, MONITOR URINALYSIS CULTURE REPORT. - PT TO GET A DOSE BEFORE DISCHARGE, START KEFLEX TONIGHT MILD DEHYDRATION WITH MILD RENAL INSUFFICIENCY - IMPROVING WITH HYDRATION, CONTINUE WITH IV FLUIDS AT CURRENT RATE. VISUAL AND AUDITORY HALLUCINATIONS - SUSPECT DUE TO DELIRIUM FROM ACUTE GASTROENTERITIS PT HAD EARLIER LAST WEEK - SHOULD IMPROVE WITH HYDRATION, SUPPORTIVE CARE. DISCUSSED NEED FOR PATIENT TO HAVE CAROTID ULTRASOUND DUE TO MILD CAROTID BRUIT - THIS SHOULD ALSO LET US KNOW IF THERE IS ANY POSSIBILITY THIS MAY BE DUE TO A SOFT CAROTID PLAQUE THAT HAS BROKEN OFF, BUT HER CT SCAN WAS NEGATIVE FOR ANY ACUTE STROKE. RESUME HOME MEDICATION FOR HYPERTENSION AND INSOMNIA DISCUSSED NEED FOR PT TO STOP DRIVING, NEED TO GET IN-HOME CARE FOR PATIENT. CHRONIC ANTICOAGULATION - PT TO BE ON ANTIBIOTICS, CHECK LABS SUNDAY OF THIS WEEK, MONITOR INR CLOSELY Discharge Condition at discharge improved Instructions to patient/family Please see electonic discharge instructions given to patient. Discharge Medications Reviewed and agree with Discharge Medication list on patient's Discharge Instruction sheet Clinical Quality Measures DVT/VTE Risk/Contraindication: Risk Factor Score Per Nursin RFS Level Per Nursing on Admit: 1=Low/No VTE PPX Contraindications-Mechi: Other *list below* Other: PT ON COUMADIN, WILL NOT START SCD'S DUE TO PT HAVING RESTLESS LEGS AMANDEEP MURGUIA MD Apr 16, 2017 10:01
--- NOTE | 2017-04-16 10:56 | Diagnostic Imaging Report ---
PROCEDURE: US Carotid Duplex Bilateral. TECHNIQUE: Multiple real-time grayscale images were obtained over the carotid arteries in various projections bilaterally. Additional duplex Doppler and color Doppler images were also obtained. INDICATION: Carotid bruit. Visual disturbances. FINDINGS: There is mild calcified plaque along the carotid bifurcation on the left side. There is antegrade flow seen in the vertebral arteries bilaterally and color-flow demonstrating patency of the common, internal, and external carotid arteries on both sides. The peak systolic velocities in the right ICA are 39, 48, and 68 cm/s and on the left are 40, 48, and 77 cm/s. The ICA/CCA ratios are up to 1.2 on the right side and up to 1.3 on the left side. IMPRESSION: There is mild plaque along the left carotid bifurcation seen. The estimated underlying stenosis is in the range of 0-40% bilaterally. Dictated by: Dictated on workstation # [id number]
--- NOTE | 2017-04-16 12:50 | Occupational Therapy Eval ---
OT Evaluation-General/PLF Medical Diagnosis Admission Date Apr 14, 2017 at 21:55 Medical Diagnosis: UTI, dehydration Onset Date: Apr 14, 2017 Therapy Diagnosis Therapy Diagnosis: Weakness Height/Weight Height (Feet): 5 Height (Inches): 1.00 Weight (Pounds): 118 Weight (Ounces): 2.0 Precautions Precautions/Isolations: Standard Precautions Safety Interventions: None Weight Bear Status Weight Bearing Restriction: Weight Bearing/Tolerated Referral Physician: Dr. Medina Referral Reason: Activity Tolerance, Self Care, Evaluation/Treatment, Strengthening/ROM Medical History Pertinent Medical History: Atrial Fib, GERD, HTN Additional Medical History Macular degeneration, Right middle lobe of lung removed. Current History Pt. became ill at home. Began to have nausea and vomitting. Reviewed History: Yes Social History Home: Multilevel Current Living Status: Alone Entry Into Home: Stairs With Railing Steps Into Home: 2 ADL-Prior Level of Function ADL PLOF Comments Pt. states that she is independent with daily living tasks. States that she has a cleaning lady, and a "human resources temp." States that she cooks for herself, or goes out to eat. Granddaughter in room with her during interview and evaluation. DME/Equipment: Bath Chair, Shower DME/Equipment Comments Pt. states that she might have a walker, but does not use it. Has a cane. Drive Self: Yes OT Current Status Subjective No pain reported. Appearance Pt. is sitting on side of bed. Granddaughter by her side. Mental Status/Objective Patient Orientation: Person, Place Current Glasses/Contacts: Yes Hearing Aids: Yes Dentures/Partials: No Upper Extremity ROM WFL Upper Extremity Coordination intact Upper Extremity Strength WFL ADL-Treatment Functional [place] Measure 0=Not Assessed/NA 4=Minimal Assistance 1=Total Assistance 5=Supervision or Setup 2=Maximal Assistance 6=Modified [place] 3=Moderate Assistance 7=Complete IndependenceIRFPAI Quality Coding Scale 6 Independent with activity with or without an assistive device 5 Patient requires set up or clean up by helper. Patient completes activity by themselves 4 Supervision or touching assist (CGA). Tunas provide cues , steadying assist 3 The helper provides less than half the effort to complete the activity 2 The helper provides more than half the effort to complete the activity 1 Dependent. The helper does all the effort to complete an activity 7 Patient refused to complete or attempt activity 9 The patient did not perform the activity before the current illness or injury 88 Not attempted due to Medical conditions or safety concerns Eating (FIM): 6 Lower Body Dressing (FIM): 6 (Pt. is able to doff/don socks with no difficulty. ) Toileting (FIM): 6 (Per pt. report, pt. is able to toilet self after BM.) Transfers (B, C, W/C) (FIM): 7 (Pt. is able to stand at bedside without assistive device. Is able to balance self and take steps. ) Other Treatments Spoke with granddaughter and pt. in depth regarding safety at home. Grandjess lives in [place] and came to assist her grandmother when she heard she was ill. She will be leaving in a few days to go back, but another grandchild is coming to assist for awhile. Granddaughter states that she has some concerns regarding her grandmother's safety, because she feels that her grandmother is not being honest about the things that she is doing in the home. She states that she knows the pt. has been up on a step ladder recently. She also states that the pt. has bad macular degeneration, and is still driving. Pt. is insistent that her vision only affects her ability to read, and that she only drives in town and short distances. She states that she does not have difficulty with this. States that she is "checked off" every year by her eye dr., and that she re-took the driving test approximately 4 years ago. Pt. and granddaughter are educated on importance of being safe, and that driving may not be safe. Recommended taking the test again. Pt. verbalizes understanding, but unsure if she will. Will notify primary physician office. Granddaughter states that she is worried about her grandmother. Spoke with pt. about being safe at home, and not getting on ladders anymore. Pt. laughs and agrees. Pt. and granddaughter state that she wears a "life alert type deal" when she is alone. However, forgets to take it at times with her. Pt. and granddaughter are educated about making tasks simpler, such as getting meals on wheels. Also let them know that [employer] has started to make home deliveries. Granddaughter states that she will get this set up today. Educated her about getting the morning paper put on her porch, so she doesn't have to walk to get it. She states that she has already done this, and that her granddaughter also calls and checks on her everyday. Let granddaughter know that if she has concerns, that she should speak with primary care physician. She verbalizes understanding and states that she will get as much set up for her grandmother as possible. All needs met in room. Education OT Patient Education: Correct positioning, Instructions to caregiver, Modified ADL techniques, Progress toward Goal/Update tx plan, Purpose of tx/functional activities, Reviewed precautions, Rehab process, Transfer techniques Teaching Recipient: Patient Teaching Methods: Demonstration, Discussion Response to Teaching: Verbalize Understanding, Return Demonstration OT Short Term Goals Short Term Goals 1=Demonstrate adherence to instructed precautions during ADL tasks. 2=Patient will verbalize/demonstrate understanding of assistive devices/ modifications for ADL. 3=Patient will improve strength/tolerance for activity to enable patient to perform ADL's. OT Glass Or Mirror Inspector Goals Glass Or Mirror Inspector Goals Time Frame: Apr 16, 2017 Pt. has discharged home already with home health care. Physician office has been notified regarding granddaughter's concerns. 1=Demonstrate adherence to instructed precautions during ADL tasks. 2=Patient will verbalize/demonstrate understanding of assistive devices/ modifications for ADL. 3=Patient will improve strength/tolerance for activity to enable patient to perform ADL's. Pt. did demonstrate ability to transfer and complete LE dressing during evaluation independently. OT Education/Plan Problem List/Assessment Assessment: No Skilled OT Needs ID'd Discharge Recommendations Plan/Recommendations: Discontinue OT Therapy D/C Recommendations: Home w/ Family Support Barriers to Progress Visual deficits reported by both pt. and granddaughter. Target Placement Pt. is discharged home with home health PT to work on strengthening. Treatment Plan/Plan of Care Treatment,Training & Education: Yes Treatment Duration: Apr 16, 2017 Visits Per Week: 1, visit pt. discharged Rehab Potential: Good Time/GCodes Start Time: 10:00 Stop Time: 10:30 Total Time Billed (hr/min): 30 Billed Treatment Time 1, EVmod x 15minutes, ADL x 15minutes TJ TURCIOS OT Apr 16, 2017 12:50
--- OUTSIDE RECORDS SUMMARY | 2017-04-16 17:33 | XMS REPORT | Continuity of Care Document ---
Author Author [facility] Organization [facility] Address Unknown Phone Unavailable Allergies Active Description Code Type Severity Reaction Onset Reported/Identified Relationship to Patient Clinical Status Yes No Known Drug Allergies [id number] Drug Allergy Unknown N/ A 01/18/2012 Medications Problems Date Dx Coded Attending Type Code Diagnosis Diagnosed By 09/20/1338 DELLA HONG, DAYLIN Welsh Ot R49.0 DYSPHONIA 05/28/2011 Ot 427.31 ATRIAL FIBRILLATION 05/28/2011 Ot V58.61 ANTICOAGULANTS,LT,CURRENT USE 09/17/2011 Ot 427.31 ATRIAL FIBRILLATION 09/17/2011 Ot V58.61 ANTICOAGULANTS,LT,CURRENT USE 03/19/2012 Ot 427.31 ATRIAL FIBRILLATION 03/19/2012 Ot V58.61 ANTICOAGULANTS,LT,CURRENT USE 09/17/2012 Ot 401.9 HYPERTENSION NOS 09/17/2012 Ot 416.8 CHR PULMON HEART DIS NEC 09/17/2012 Ot 427.31 ATRIAL FIBRILLATION 09/17/2012 Ot 427.81 SINOATRIAL NODE DYSFUNCT 09/17/2012 Ot 786.09 RESPIRATORY ABNORM NEC 09/17/2012 Ot V58.61 ANTICOAGULANTS,LT,CURRENT USE 09/17/2012 Ot V58.69 OTH MED,LT,CURRENT USE 10/23/2012 Ot 723.1 CERVICALGIA 10/23/2012 Ot V57.1 PHYSICAL THERAPY NEC 02/28/2014 VITOR HONG, AFSANEH Pacheco Ot 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 02/28/2014 VITOR HONG, AFSANEH Pacheco Ot 401.9 HYPERTENSION NOS 02/28/2014 AFSANEH ADLER MD Ot 427.31 ATRIAL FIBRILLATION 02/28/2014 VITOR HONG, AFSANEH Pacheco Ot 427.81 SINOATRIAL NODE DYSFUNCT 05/07/2014 STEPHANIE VERA MD Ot 427.31 ATRIAL FIBRILLATION 05/07/2014 STEPHANIE VERA MD Ot V58.61 ANTICOAGULANTS,LT,CURRENT USE 05/14/2014 ROSA HONG, ZURI K Ot 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 05/14/2014 ROSA HONG, ZURI Cramer Ot 397.0 TRICUSPID VALVE DISEASE 05/14/2014 ROSA HONG, ZURI Cramer Ot 401.9 HYPERTENSION NOS 05/14/2014 ROSA HONG, ZURI Cramer Ot 424.0 MITRAL VALVE DISORDER 05/14/2014 ROSA HONG, ZURI Cramer Ot 427.31 ATRIAL FIBRILLATION 05/14/2014 ROSA HONG, ZURI Cramer Ot 427.81 SINOATRIAL NODE DYSFUNCT 05/14/2014 ROSA HONG, ZURI Cramer Ot V58.61 ANTICOAGULANTS,LT,CURRENT USE 09/03/2014 ROSA HONG, ZURI Cramer Ot 174.9 09/03/2014 ROSA HONG, ZURI Cramer Ot 397.0 09/03/2014 ROSA HONG, ZURI Cramer Ot 401.9 09/03/2014 ROSA HONG, ZURI Cramer Ot 424.0 09/03/2014 ROSA HONG, ZURI Cramer Ot 427.31 09/03/2014 ROSA HONG, ZURI Cramer Ot 427.81 09/03/2014 ZURI LEE MD Ot V58.61 09/28/2014 ROSA HONG, ZURI Cramer Ot 174.9 09/28/2014 ROSA HONG, ZURI Cramer Ot 397.0 09/28/2014 ROSA HONG, ZURI Cramer Ot 401.9 09/28/2014 ROSA HONG, ZURI Cramer Ot 424.0 09/28/2014 ROSA HONG, ZURI Cramer Ot 427.31 09/28/2014 ROSA HONG, ZURI Cramer Ot 427.81 09/28/2014 ZURI LEE MD Ot V58.61 10/26/2014 ROSA HONG, ZURI Cramer Ot 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 10/26/2014 ROSA HONG, ZURI Cramer Ot 397.0 TRICUSPID VALVE DISEASE 10/26/2014 ROSA HONG, ZURI Cramer Ot 401.9 HYPERTENSION NOS 10/26/2014 ROSA HONG, ZURI Cramer Ot 424.0 MITRAL VALVE DISORDER 10/26/2014 ROSA HONG, ZURI Cramer Ot 427.31 ATRIAL FIBRILLATION 10/26/2014 ROSA HONG, ZURI Cramer Ot 427.81 SINOATRIAL NODE DYSFUNCT 10/26/2014 ZURI LEE MD Ot V58.61 ANTICOAGULANTS,LT,CURRENT USE 10/29/2014 ROSA HONG, ZURI Cramer Ot 174.9 10/29/2014 ROSA HONG, ZURI Cramer Ot 397.0 10/29/2014 ROSA HONG, ZURI Cramer Ot 401.9 10/29/2014 ROSA HONG, ZURI Cramer Ot 424.0 10/29/2014 ROSA HONG, ZURI K Ot 427.31 10/29/2014 ROSA HONG, ZURI K Ot 427.81 10/29/2014 ROSA HONG, ZURI K Ot V58.61 11/05/2014 ROSA HONG, ZURI K Ot 174.9 11/05/2014 ROSA HONG, ZURI K Ot 397.0 11/05/2014 ROSA HONG, ZURI K Ot 401.9 11/05/2014 ROSA HONG, ZURI K Ot 424.0 11/05/2014 ROSA HONG, ZURI K Ot 427.31 11/05/2014 ROSA HONG, ZURI K Ot 427.81 11/05/2014 ROSA HONG, ZURI K Ot V58.61 11/06/2014 ROSA HONG, ZURI K Ot 174.9 11/06/2014 ROSA HONG, ZURI K Ot 397.0 11/06/2014 ROSA HONG, ZURI K Ot 401.9 11/06/2014 ROSA HONG, ZURI K Ot 424.0 11/06/2014 ROSA HONG, ZURI K Ot 427.31 11/06/2014 ROSA HONG, ZURI K Ot 427.81 11/06/2014 ROSA HONG, ZURI K Ot V58.61 12/17/2014 ROSA HONG, ZURI K Ot 174.9 12/17/2014 ROSA HONG, ZURI K Ot 397.0 12/17/2014 ROSA HONG, ZURI K Ot 401.9 12/17/2014 ROSA HONG, ZURI K Ot 424.0 12/17/2014 ROSA HONG, ZURI K Ot 427.31 12/17/2014 ROSA HONG, ZURI K Ot 427.81 12/17/2014 ROSA HONG, ZURI K Ot V58.61 12/17/2014 ROSA HONG, ZURI K Ot 174.9 12/17/2014 ROSA HONG, ZURI K Ot 397.0 12/17/2014 ROSA HONG, ZURI K Ot 401.9 12/17/2014 ROSA HONG, ZURI K Ot 424.0 12/17/2014 ROSA HONG, ZURI K Ot 427.31 12/17/2014 ROSA HONG, ZURI K Ot 427.81 12/17/2014 ROSA HONG, ZURI K Ot V58.61 02/03/2015 ROSA HONG, ZURI K Ot 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 02/03/2015 ROSA HONG, ZURI K Ot 397.0 TRICUSPID VALVE DISEASE 02/03/2015 ROSA HONG, ZURI K Ot 401.9 HYPERTENSION NOS 02/03/2015 ROSA HONG, ZURI K Ot 424.0 MITRAL VALVE DISORDER 02/03/2015 ROSA HONG, ZURI Cramer Ot 427.31 ATRIAL FIBRILLATION 02/03/2015 ROSA HONG, ZURI K Ot 427.81 SINOATRIAL NODE DYSFUNCT 02/03/2015 ROSA HONG, ZURI Cramer Ot V58.61 ANTICOAGULANTS,LT,CURRENT USE 02/23/2015 ROSA HONG, ZURI Cramer Ot 174.9 03/12/2015 ROSA HONG, ZURI Bela Ot 174.9 04/20/2015 ROSA HONG, ZURI K Ot 174.9 04/20/2015 ROSA HONG, ZURI K Ot 397.0 04/20/2015 ROSA HONG, ZURI K Ot 401.9 04/20/2015 ROSA HONG, ZURI K Ot 424.0 04/20/2015 ROSA HONG, ZURI K Ot 427.31 04/20/2015 ROSA HONG, ZURI K Ot 427.81 04/20/2015 ROSA HONG, ZURI K Ot V58.61 04/27/2015 ROSA HONG, ZURI Bela Ot 174.9 04/27/2015 ROSA HONG, ZURI Bela Ot 397.0 04/27/2015 ROSA HONG, ZURI K Ot 401.9 04/27/2015 ROSA HONG, ZURI K Ot 424.0 04/27/2015 ROSA HONG, ZURI K Ot 427.31 04/27/2015 ROSA HONG, ZURI K Ot 427.81 04/27/2015 ROSA HONG, ZURI K Ot V58.61 04/28/2015 ROSA OHNG, ZURI K Ot 174.9 04/28/2015 ROSA HONG, ZURI K Ot 397.0 04/28/2015 ROSA HONG, ZURI K Ot 401.9 04/28/2015 ROSA HONG, ZURI K Ot 424.0 04/28/2015 ROSA HOGN, ZURI K Ot 427.31 04/28/2015 ROSA HONG, ZURI K Ot 427.81 04/28/2015 ROSA HONG, ZURI K Ot V58.61 06/15/2015 ROSA HONG, ZURI K Ot 174.9 06/15/2015 ROSA HONG, ZURI K Ot 397.0 06/15/2015 ROSA HONG, ZURI K Ot 401.9 06/15/2015 ROSA HONG, ZURI K Ot 424.0 06/15/2015 ROSA HONG, ZURI Bela Ot 427.31 06/15/2015 ROSA HONG, ZURI K Ot 427.81 06/15/2015 ROSA HONG, ZURI K Ot V58.61 06/18/2015 ROSA HONG, ZURI K Ot 174.9 06/18/2015 ROSA HONG, ZURI Cramer Ot 397.0 06/18/2015 ROSA HONG, ZURI Cramer Ot 401.9 06/18/2015 ROSA HONG, ZURI Cramer Ot 424.0 06/18/2015 ROSA HONG, ZURI Cramer Ot 427.31 06/18/2015 ROSA HONG, ZURI Cramer Ot 427.81 06/18/2015 ROAS HONG, ZURI Cramer Ot V58.61 07/21/2015 ROSA HONG, ZURI Cramer Ot 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 07/21/2015 ROSA HONG, ZURI Cramer Ot 397.0 TRICUSPID VALVE DISEASE 07/21/2015 ROSA HONG, ZURI Cramer Ot 401.9 HYPERTENSION NOS 07/21/2015 ROSA HONG, ZURI Cramer Ot 424.0 MITRAL VALVE DISORDER 07/21/2015 ROSA HONG, ZURI Cramer Ot 427.31 ATRIAL FIBRILLATION 07/21/2015 ROSA HONG, ZURI Cramer Ot 427.81 SINOATRIAL NODE DYSFUNCT 07/21/2015 ROSA HONG, ZURI Cramer Ot V58.61 ANTICOAGULANTS,LT,CURRENT USE 08/23/2015 SHANTAL HONG, AMANDEEP Dean Ot E03.9 08/23/2015 SHANTAL HONG, AMANDEEP Dean Ot Z51.81 08/23/2015 SHANTAL HONG, AMANDEEP Dean Ot Z79.01 09/13/2015 ROSA HONG, ZURI Cramer Ot C50.911 09/13/2015 ROSA HONG, ZURI Cramer Ot I10 09/13/2015 ROSA HONG, ZURI Cramer Ot I25.10 09/13/2015 ROSA HONG, ZURI Cramer Ot I48.91 09/13/2015 ROSA HONG, ZURI Cramer Ot I49.5 09/13/2015 ROSA HONG, ZURI Cramer Ot L71.9 09/13/2015 ROSA HONG, ZURI Cramer Ot Z17.0 09/13/2015 ROSA HONG, ZURI Cramer Ot Z79.01 09/13/2015 ROSA HONG, ZURI Cramer Ot Z79.899 09/21/2015 ROSA HONG, ZURI Cramer Ot C50.911 09/21/2015 ROSA HONG, ZURI Cramer Ot I10 09/21/2015 ROSA HONG, ZURI Cramer Ot I25.10 09/21/2015 ROSA HONG, ZURI Cramer Ot I48.91 09/21/2015 ROSA HONG, ZURI Cramer Ot I49.5 09/21/2015 ROSA HONG, ZURI Cramer Ot L71.9 09/21/2015 ROSA HONG, ZURI Cramer Ot Z17.0 09/21/2015 ROSA HONG, ZURI Cramer Ot Z79.01 09/21/2015 ROSA HONG, ZURI Cramer Ot Z79.899 10/14/2015 BAIMA, STACEY L SHEET ROCK APPLIER Ot I07.1 10/14/2015 BAIMA, STACEY L SHEET ROCK APPLIER Ot I10 10/14/2015 BAIMA, STACEY L SHEET ROCK APPLIER Ot I34.0 10/14/2015 BAIMA, STACEY L SHEET ROCK APPLIER Ot I48.2 10/14/2015 BAIMA, STACEY L SHEET ROCK APPLIER Ot I49.5 10/14/2015 BAIMA, STACEY L SHEET ROCK APPLIER Ot Z79.01 10/25/2015 BAIMA, STACEY L SHEET ROCK APPLIER Ot I07.1 10/25/2015 BAIMA, STACEY L SHEET ROCK APPLIER Ot I10 10/25/2015 BAIMA, STACEY L SHEET ROCK APPLIER Ot I34.0 10/25/2015 BAIMA, STACEY L SHEET ROCK APPLIER Ot I48.2 10/25/2015 BAIMA, STACEY L SHEET ROCK APPLIER Ot I49.5 10/25/2015 BAIMA, STACEY L SHEET ROCK APPLIER Ot Z79.01 10/27/2015 ROSA HONG, ZURI Cramer Ot C50.911 MALIGNANT NEOPLASM OF UNSP SITE OF RIGHT 10/27/2015 ROSA HONG, ZURI Cramer Ot I10 ESSENTIAL (PRIMARY) HYPERTENSION 10/27/2015 ROSA HONG, ZURI Cramer Ot I25.10 ATHSCL HEART DISEASE OF [place] CORONARY 10/27/2015 ROSA HONG, ZURI Cramer Ot I48.91 UNSPECIFIED ATRIAL FIBRILLATION 10/27/2015 ROSA HONG, ZURI Cramer Ot I49.5 SICK SINUS SYNDROME 10/27/2015 ROSA HONG, ZURI Cramer Ot L71.9 ROSACEA, UNSPECIFIED 10/27/2015 ZURI LEE MD Ot Z17.0 ESTROGEN RECEPTOR POSITIVE STATUS [ER+] 10/27/2015 ROSA HONG, ZURI Cramer Ot Z79.01 WAITER/WAITRESS FIRST CLASS (CURRENT) USE OF ANTICOAGULANT 10/27/2015 ROSA HONG, ZURI Cramer Ot Z79.899 OTHER WAITER/WAITRESS FIRST CLASS (CURRENT) DRUG THERAPY 10/29/2015 ROSA HONG, ZURI Cramer Ot C50.911 10/29/2015 ROSA HONG, ZURI Cramer Ot I10 10/29/2015 ROSA HONG, ZURI Cramer Ot I25.10 10/29/2015 ZURI LEE MD Ot I48.91 10/29/2015 ROSA HONG, ZURI Cramer Ot I49.5 10/29/2015 ROSA HONG, ZURI Cramer Ot L71.9 10/29/2015 ROSA HONG, ZURI Cramer Ot Z17.0 10/29/2015 ROSA HONG, ZURI Cramer Ot Z79.01 10/29/2015 ROSA HONG, ZURI Cramer Ot Z79.899 11/08/2015 ROSA HONG, ZURI Cramer Ot C50.911 11/08/2015 ROSA HONG, ZURI K Ot I10 11/08/2015 ROSA HONG, ZURI Cramer Ot I25.10 11/08/2015 ROSA HONG, ZURI Cramer Ot I48.91 11/08/2015 ROSA HONG, ZURI Cramer Ot I49.5 11/08/2015 ROSA HONG, ZURI Cramer Ot L71.9 11/08/2015 ROSA HONG, ZURI Cramer Ot Z17.0 11/08/2015 ROSA HONG, ZURI Cramer Ot Z79.01 11/08/2015 ROSA HONG, ZURI Cramer Ot Z79.899 12/07/2015 ROSA HONG, ZURI Cramer Ot C50.911 12/07/2015 ROSA HONG, ZURI Cramer Ot I10 12/07/2015 ROSA HONG, ZURI Cramer Ot I25.10 12/07/2015 ROSA HONG, ZURI Cramer Ot I48.91 12/07/2015 ROSA HONG, ZURI Cramer Ot I49.5 12/07/2015 ROSA HONG, ZURI Cramer Ot L71.9 12/07/2015 ROSA HONG, ZURI Cramer Ot Z17.0 12/07/2015 ROSA HONG, ZURI Cramer Ot Z79.01 12/07/2015 ROSA HONG, ZURI Cramer Ot Z79.899 12/20/2015 ROSA HONG, ZURI Cramer Ot C50.911 12/20/2015 ROSA HONG, ZURI Cramer Ot I10 12/20/2015 ROSA HONG, ZURI Cramer Ot I25.10 12/20/2015 ROSA HONG, ZURI Cramer Ot I48.91 12/20/2015 ROSA HONG, ZURI Cramer Ot I49.5 12/20/2015 ROSA HONG, ZURI Cramer Ot L71.9 12/20/2015 ROSA HONG, ZURI Cramer Ot Z17.0 12/20/2015 ROSA HONG, ZURI Cramer Ot Z79.01 12/20/2015 ROSA HONG, ZURI Cramer Ot Z79.899 01/13/2016 STACEY CURRY Ot R06.00 01/13/2016 ALESIASTACEY CHAPARRO SHEET ROCK APPLIER Ot R60.9 01/18/2016 BAIMA, STACEY Garcia SHEET ROCK APPLIER Ot R06.00 01/18/2016 BAISTACEY CHAPARRO L SHEET ROCK APPLIER Ot R60.9 02/01/2016 BAIMASTACEY SHEET ROCK APPLIER Ot R06.00 02/01/2016 BAISTACEY CHAPARRO SHEET ROCK APPLIER Ot R60.9 02/02/2016 ZURI LEE MD Ot C50.911 MALIGNANT NEOPLASM OF UNSP SITE OF RIGHT 02/02/2016 ZURI LEE MD Ot I10 ESSENTIAL (PRIMARY) HYPERTENSION 02/02/2016 ZURI LEE MD Ot I25.10 ATHSCL HEART DISEASE OF [place] CORONARY 02/02/2016 ZURI LEE MD Ot I48.91 UNSPECIFIED ATRIAL FIBRILLATION 02/02/2016 ZURI LEE MD, Ot I49.5 SICK SINUS SYNDROME 02/02/2016 ZURI LEE MD Ot L71.9 ROSACEA, UNSPECIFIED 02/02/2016 ZURI LEE MD Ot Z17.0 ESTROGEN RECEPTOR POSITIVE STATUS [ER+] 02/02/2016 ZURI LEE MD Ot Z79.01 WAITER/WAITRESS FIRST CLASS (CURRENT) USE OF ANTICOAGULANT 02/02/2016 ZURI LEE MD Ot Z79.899 OTHER DETENTION (CURRENT) DRUG THERAPY 02/02/2016 STACEY CURRY SHEET ROCK APPLIER Ot E87.6 02/02/2016 ALESIASTACEY CHAPARRO SHEET ROCK APPLIER Ot I10 02/02/2016 ALESIASTACEY CHAPARRO SHEET ROCK APPLIER Ot I49.5 02/02/2016 ALESIASTACEY CHAPARRO SHEET ROCK APPLIER Ot R60.9 02/07/2016 ZURI LEE MD, Ot C50.911 MALIGNANT NEOPLASM OF UNSP SITE OF RIGHT 02/07/2016 ZURI LEE MD Ot I10 ESSENTIAL (PRIMARY) HYPERTENSION 02/07/2016 ZURI LEE MD Ot I25.10 ATHSCL HEART DISEASE OF [place] CORONARY 02/07/2016 ZURI LEE MD Ot I48.91 UNSPECIFIED ATRIAL FIBRILLATION 02/07/2016 ZURI LEE MD Ot I49.5 SICK SINUS SYNDROME 02/07/2016 ZURI LEE MD Ot L71.9 ROSACEA, UNSPECIFIED 02/07/2016 ZURI LEE MD Ot Z17.0 ESTROGEN RECEPTOR POSITIVE STATUS [ER+] 02/07/2016 ZURI LEE MD, Ot Z79.01 WAITER/WAITRESS FIRST CLASS (CURRENT) USE OF ANTICOAGULANT 02/07/2016 ZURI LEE MD Ot Z79.899 OTHER WAITER/WAITRESS FIRST CLASS (CURRENT) DRUG THERAPY 02/08/2016 ZURI LEE MD, Ot C50.911 MALIGNANT NEOPLASM OF UNSP SITE OF RIGHT 02/08/2016 ZURI LEE MD Ot I10 ESSENTIAL (PRIMARY) HYPERTENSION 02/08/2016 ZURI LEE MD Ot I25.10 ATHSCL HEART DISEASE OF [place] CORONARY 02/08/2016 ZURI LEE MD, Ot I48.91 UNSPECIFIED ATRIAL FIBRILLATION 02/08/2016 ZURI LEE MD, Ot I49.5 SICK SINUS SYNDROME 02/08/2016 ZURI LEE MD, Ot L71.9 ROSACEA, UNSPECIFIED 02/08/2016 ZURI LEE MD Ot Z17.0 ESTROGEN RECEPTOR POSITIVE STATUS [ER+] 02/08/2016 ZURI LEE MD, Ot Z79.01 WAITER/WAITRESS FIRST CLASS (CURRENT) USE OF ANTICOAGULANT 02/08/2016 ZURI LEE MD, Ot Z79.899 OTHER DETENTION (CURRENT) DRUG THERAPY 02/09/2016 BAIMA, STACEY L SHEET ROCK APPLIER Ot R06.00 DYSPNEA, UNSPECIFIED 02/09/2016 BAIMA, STACEY L SHEET ROCK APPLIER Ot R60.9 EDEMA, UNSPECIFIED 02/10/2016 BAIMA, STACEY L SHEET ROCK APPLIER Ot R06.00 DYSPNEA, UNSPECIFIED 02/10/2016 BAIMA, STACEY L SHEET ROCK APPLIER Ot R60.9 EDEMA, UNSPECIFIED 02/18/2016 ZURI LEE MD, Ot C50.911 MALIGNANT NEOPLASM OF UNSP SITE OF RIGHT 02/18/2016 ZURI LEE MD Ot I10 ESSENTIAL (PRIMARY) HYPERTENSION 02/18/2016 ZURI LEE MD Ot I25.10 ATHSCL HEART DISEASE OF [place] CORONARY 02/18/2016 ZURI LEE MD Ot I48.91 UNSPECIFIED ATRIAL FIBRILLATION 02/18/2016 ZURI LEE MD, Ot I49.5 SICK SINUS SYNDROME 02/18/2016 ZURI LEE MD Ot L71.9 ROSACEA, UNSPECIFIED 02/18/2016 ZURI LEE MD Ot Z17.0 ESTROGEN RECEPTOR POSITIVE STATUS [ER+] 02/18/2016 ZURI LEE MD Ot Z79.01 DETENTION (CURRENT) USE OF ANTICOAGULANT 02/18/2016 ZURI LEE MD, Ot Z79.899 OTHER DETENTION (CURRENT) DRUG THERAPY 02/23/2016 STACEY CURRY SHEET ROCK APPLIER Ot E87.6 HYPOKALEMIA 02/23/2016 ALESIASTACEY CHAPARRO SHEET ROCK APPLIER Ot I10 ESSENTIAL (PRIMARY) HYPERTENSION 02/23/2016 STACEY CURRY SHEET ROCK APPLIER Ot I49.5 SICK SINUS SYNDROME 02/23/2016 STACEY CURRY SHEET ROCK APPLIER Ot R60.9 EDEMA, UNSPECIFIED 03/01/2016 ZURI LEE MD Ot C50.911 MALIGNANT NEOPLASM OF UNSP SITE OF RIGHT 03/01/2016 STACEY CURRY SHEET ROCK APPLIER Ot E87.6 HYPOKALEMIA 03/01/2016 ALESIASTACEY CHAPARRO SHEET ROCK APPLIER Ot I10 ESSENTIAL (PRIMARY) HYPERTENSION 03/01/2016 STACEY CURRY SHEET ROCK APPLIER Ot I49.5 SICK SINUS SYNDROME 03/01/2016 ALESIASTACEY CHAPARRO SHEET ROCK APPLIER Ot R60.9 EDEMA, UNSPECIFIED 03/10/2016 ZURI LEE MD Ot C50.911 MALIGNANT NEOPLASM OF UNSP SITE OF RIGHT 03/13/2016 ZURI LEE MD, Ot C50.911 MALIGNANT NEOPLASM OF UNSP SITE OF RIGHT 03/13/2016 ZURI LEE MD Ot I10 ESSENTIAL (PRIMARY) HYPERTENSION 03/13/2016 ZURI LEE MD Ot I25.10 ATHSCL HEART DISEASE OF [place] CORONARY 03/13/2016 ZURI LEE MD Ot I48.91 UNSPECIFIED ATRIAL FIBRILLATION 03/13/2016 ZURI LEE MD Ot I49.5 SICK SINUS SYNDROME 03/13/2016 ZURI LEE MD Ot L71.9 ROSACEA, UNSPECIFIED 03/13/2016 ZURI LEE MD Ot Z17.0 ESTROGEN RECEPTOR POSITIVE STATUS [ER+] 03/13/2016 ZURI LEE MD, Ot Z79.01 WAITER/WAITRESS FIRST CLASS (CURRENT) USE OF ANTICOAGULANT 03/13/2016 ZURI LEE MD, Ot Z79.899 OTHER DETENTION (CURRENT) DRUG THERAPY 03/22/2016 ZURI LEE MD Ot C50.911 MALIGNANT NEOPLASM OF UNSP SITE OF RIGHT 03/22/2016 ZURI LEE MD Ot I10 ESSENTIAL (PRIMARY) HYPERTENSION 03/22/2016 ZURI LEE MD Ot I25.10 ATHSCL HEART DISEASE OF [place] CORONARY 03/22/2016 ZURI LEE MD Ot I48.91 UNSPECIFIED ATRIAL FIBRILLATION 03/22/2016 ZURI LEE MD Ot I49.5 SICK SINUS SYNDROME 03/22/2016 ZURI LEE MD Ot L71.9 ROSACEA, UNSPECIFIED 03/22/2016 ZURI LEE MD Ot Z17.0 ESTROGEN RECEPTOR POSITIVE STATUS [ER+] 03/22/2016 ZURI LEE MD Ot Z79.01 WAITER/WAITRESS FIRST CLASS (CURRENT) USE OF ANTICOAGULANT 03/22/2016 ZURI LEE MD Ot Z79.899 OTHER WAITER/WAITRESS FIRST CLASS (CURRENT) DRUG THERAPY 03/28/2016 DAYLIN HULL MD P Ot R49.0 DYSPHONIA 04/06/2016 DAYLIN HULL MD P Ot R49.0 DYSPHONIA 05/17/2016 ZURI LEE MD Ot C50.911 MALIGNANT NEOPLASM OF UNSP SITE OF RIGHT 05/17/2016 ZURI LEE MD Ot I10 ESSENTIAL (PRIMARY) HYPERTENSION 05/17/2016 ZURI LEE MD Ot I25.10 ATHSCL HEART DISEASE OF [place] CORONARY 05/17/2016 ZURI LEE MD Ot I48.91 UNSPECIFIED ATRIAL FIBRILLATION 05/17/2016 ZURI LEE MD Ot I49.5 SICK SINUS SYNDROME 05/17/2016 ZURI LEE MD Ot L71.9 ROSACEA, UNSPECIFIED 05/17/2016 ZURI LEE MD Ot Z17.0 ESTROGEN RECEPTOR POSITIVE STATUS [ER+] 05/17/2016 ZURI LEE MD Ot Z79.01 WAITER/WAITRESS FIRST CLASS (CURRENT) USE OF ANTICOAGULANT 05/17/2016 ZURI LEE MD Ot Z79.899 OTHER DETENTION (CURRENT) DRUG THERAPY 05/23/2016 SHAYNA HONG, SONJA T Ot E87.70 FLUID OVERLOAD, UNSPECIFIED 05/23/2016 SONJA CORRAL MD T Ot 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 05/23/2016 SONJA CORRAL MD Ot I10 ESSENTIAL (PRIMARY) HYPERTENSION 05/23/2016 SONJA CORRAL MD Ot R51 HEADACHE 05/24/2016 SONJA CORRAL MD Ot E87.70 FLUID OVERLOAD, UNSPECIFIED 05/24/2016 SONJA CORRAL MD Ot 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 05/24/2016 SONJA CORRAL MD Ot I10 ESSENTIAL (PRIMARY) HYPERTENSION 05/24/2016 SONJA CORRAL MD Ot R51 HEADACHE 05/29/2016 SONJA CORRAL MD Ot E87.70 FLUID OVERLOAD, UNSPECIFIED 05/29/2016 SONJA CORRAL MD Ot 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 05/29/2016 SONJA CORRAL MD Ot I10 ESSENTIAL (PRIMARY) HYPERTENSION 05/29/2016 SHAYNA HONG, SONJA Hunt Ot R51 HEADACHE 06/09/2016 STACEY CURRY SHEET ROCK APPLIER Ot I10 ESSENTIAL (PRIMARY) HYPERTENSION 06/09/2016 STACEY CURRY SHEET ROCK APPLIER Ot I48.2 CHRONIC ATRIAL FIBRILLATION 06/09/2016 STACEY CURRY SHEET ROCK APPLIER Ot I50.31 ACUTE DIASTOLIC (CONGESTIVE) HEART FAILU 06/09/2016 STACEY CURRY SHEET ROCK APPLIER Ot I65.23 OCCLUSION AND STENOSIS OF BILATERAL [place] 06/09/2016 STACEY CURRY SHEET ROCK APPLIER Ot R07.89 OTHER CHEST PAIN 06/09/2016 STACEY CURRY SHEET ROCK APPLIER Ot Z79.01 DETENTION (CURRENT) USE OF ANTICOAGULANT 06/12/2016 ZURI LEE MD Ot C50.911 MALIGNANT NEOPLASM OF UNSP SITE OF RIGHT 06/12/2016 ZURI LEE MD Ot I10 ESSENTIAL (PRIMARY) HYPERTENSION 06/12/2016 ZURI LEE MD Ot I25.10 ATHSCL HEART DISEASE OF [place] CORONARY 06/12/2016 ZURI LEE MD Ot I48.91 UNSPECIFIED ATRIAL FIBRILLATION 06/12/2016 ZURI LEE MD Ot I49.5 SICK SINUS SYNDROME 06/12/2016 ZURI LEE MD Ot L71.9 ROSACEA, UNSPECIFIED 06/12/2016 ZURI LEE MD Ot Z17.0 ESTROGEN RECEPTOR POSITIVE STATUS [ER+] 06/12/2016 ZURI LEE MD Ot Z79.01 DETENTION (CURRENT) USE OF ANTICOAGULANT 06/12/2016 ZURI LEE MD Ot Z79.899 OTHER WAITER/WAITRESS FIRST CLASS (CURRENT) DRUG THERAPY 06/12/2016 STACEY CURRY SHEET ROCK APPLIER Ot I10 ESSENTIAL (PRIMARY) HYPERTENSION 06/12/2016 STACEY CURRY SHEET ROCK APPLIER Ot I48.2 CHRONIC ATRIAL FIBRILLATION 06/12/2016 STACEY CURRY L SHEET ROCK APPLIER Ot I50.31 ACUTE DIASTOLIC (CONGESTIVE) HEART FAILU 06/12/2016 ALESIASTACEY CHAPARRO L SHEET ROCK APPLIER Ot I65.23 OCCLUSION AND STENOSIS OF BILATERAL [place] 06/12/2016 ALESIASTACEY CHAPARRO L SHEET ROCK APPLIER Ot R07.89 OTHER CHEST PAIN 06/12/2016 PATRICIO STACEY L SHEET ROCK APPLIER Ot Z79.01 DETENTION (CURRENT) USE OF ANTICOAGULANT 06/16/2016 ROSA HONG, ZURI Cramer Ot C50.911 MALIGNANT NEOPLASM OF UNSP SITE OF RIGHT 06/16/2016 ZURI LEE MD Ot I10 ESSENTIAL (PRIMARY) HYPERTENSION 06/16/2016 ZURI LEE MD Ot I25.10 ATHSCL HEART DISEASE OF [place] CORONARY 06/16/2016 ZURI LEE MD Ot I48.91 UNSPECIFIED ATRIAL FIBRILLATION 06/16/2016 ZURI LEE MD Ot I49.5 SICK SINUS SYNDROME 06/16/2016 ZURI LEE MD Ot L71.9 ROSACEA, UNSPECIFIED 06/16/2016 ZURI LEE MD Ot Z17.0 ESTROGEN RECEPTOR POSITIVE STATUS [ER+] 06/16/2016 ZURI LEE MD Ot Z79.01 DETENTION (CURRENT) USE OF ANTICOAGULANT 06/16/2016 ZURI LEE MD Ot Z79.899 OTHER DETENTION (CURRENT) DRUG THERAPY 06/30/2016 MIQUEL CURRYHER L [employer] APPLIER Ot I10 ESSENTIAL (PRIMARY) HYPERTENSION 06/30/2016 ALESIASHANKAR STACEY L [employer] APPLIER Ot I48.2 CHRONIC ATRIAL FIBRILLATION 06/30/2016 STACEY CURRY L [employer] APPLIER Ot I50.31 ACUTE DIASTOLIC (CONGESTIVE) HEART FAILU 06/30/2016 ALESIASHANKAR STACEY L [employer]OCK APPLIER Ot I65.23 OCCLUSION AND STENOSIS OF BILATERAL [place] 06/30/2016 ALESIASTACEY CHAPARRO L SHE[employer]OCK APPLIER Ot R07.89 OTHER CHEST PAIN 06/30/2016 PATRICIO STACEY L [employer]OCK APPLIER Ot Z79.01 WAITER/WAITRESS FIRST CLASS (CURRENT) USE OF ANTICOAGULANT 07/11/2016 PATRICIO STACEY L [employer]OCK APPLIER Ot I10 ESSENTIAL (PRIMARY) HYPERTENSION 07/11/2016 PATRICIO STACEY L SHE[employer]OCK APPLIER Ot I48.2 CHRONIC ATRIAL FIBRILLATION 07/11/2016 ALESIAMAMIQUELSTACEY L SHEET ROCK APPLIER Ot I50.31 ACUTE DIASTOLIC (CONGESTIVE) HEART FAILU 07/11/2016 STACEY CURRY [employer] APPLIER Ot I65.23 OCCLUSION AND STENOSIS OF BILATERAL [place] 07/11/2016 STACEY CURRY [employer]OCK APPLIER Ot R07.89 OTHER CHEST PAIN 07/11/2016 STACEY CURRY [employer] APPLIER Ot Z79.01 WAITER/WAITRESS FIRST CLASS (CURRENT) USE OF ANTICOAGULANT 10/31/2016 Ot 276.9 ELECTROLYT/FLUID DIS NEC 10/31/2016 Ot 401.9 HYPERTENSION NOS 10/31/2016 Ot 427.89 CARDIAC DYSRHYTHMIAS NEC 10/31/2016 Ot 276.7 HYPERPOTASSEMIA 10/31/2016 Ot 733.90 BONE CARTILAGE DIS NOS 10/31/2016 Ot V49.81 ASYMPT POSTMENOPAUSAL STATUS (AGE-RELATE 10/31/2016 Ot V82.81 SCREENING FOR OSTEOPOROSIS 10/31/2016 Ot 401.9 HYPERTENSION NOS 10/31/2016 Ot 427.31 ATRIAL FIBRILLATION 10/31/2016 Ot 786.09 RESPIRATORY ABNORM NEC 10/31/2016 Ot 397.0 TRICUSPID VALVE DISEASE 10/31/2016 Ot 401.9 HYPERTENSION NOS 10/31/2016 Ot 424.0 MITRAL VALVE DISORDER 10/31/2016 Ot 427.31 ATRIAL FIBRILLATION 10/31/2016 Ot 429.3 CARDIOMEGALY 10/31/2016 Ot 786.09 RESPIRATORY ABNORM NEC 10/31/2016 Ot 416.8 CHR PULMON HEART DIS NEC 10/31/2016 Ot 793.89 OTH (ABN) FINDINGS ON RADIOLOGICAL EXAMI 10/31/2016 Ot V76.12 OTH SCREEN MAMMO-MALIGN NEOPLASM OF BREN 10/31/2016 Ot 793.82 INCONCLUSIVE MAMMOGRAM 10/31/2016 Ot 721.0 CERVICAL SPONDYLOSIS 10/31/2016 Ot 722.4 CERVICAL DISC DEGEN 10/31/2016 Ot 793.80 UNSPEC ABNORMAL MAMMOGRAM 10/31/2016 Ot V67.9 FOLLOW-UP EXAM NOS 10/31/2016 JODY HONG, STEPHANIE Pizarro Ot 786.52 PAINFUL RESPIRATION 10/31/2016 JOSR HONG FACC, ALI FACP CCDS Ot 396.3 MITRAL/AORTIC GANESH INSUFF 10/31/2016 JOSR HONG FACC, ALI FACP CCDS Ot 429.3 CARDIOMEGALY 10/31/2016 JOSR HONG FACC, ALI FACP CCDS Ot 511.9 PLEURAL EFFUSION NOS 10/31/2016 JOSR HONG FACC, ALI FACP CCDS Ot 786.52 PAINFUL RESPIRATION 10/31/2016 JOSR HONG FAC, ALI FACP CCDS Ot 511.9 PLEURAL EFFUSION NOS 10/31/2016 JOSR HONG FAC, ALI FACP CCDS Ot 786.52 PAINFUL RESPIRATION 10/31/2016 STEPHANIE VERA MD Ot 427.31 ATRIAL FIBRILLATION 10/31/2016 STEPHANIE VERA MD Ot 511.0 PLEURISY W/O EFFUS OR TB 10/31/2016 STEPHANIE VERA MD Ot 959.11 OTH INJURY OF CHEST WALL 10/31/2016 STEPHANIE VERA MD Ot E000.8 OTHER EXTERNAL CAUSE STATUS 10/31/2016 STEPHANIE VERA MD Ot E849.0 ACCIDENT IN HOME 10/31/2016 STEPHANIE VERA MD Ot E888.9 FALL NOS 10/31/2016 STEPHANIE VERA MD Ot V58.61 ANTICOAGULANTS,LT,CURRENT USE 10/31/2016 STEPHANIE VERA MD Ot 733.00 OSTEOPOROSIS NOS 10/31/2016 STEPHANIE VERA MD Ot 733.90 BONE CARTILAGE DIS NOS 10/31/2016 STEPHANIE VERA MD Ot V76.12 OTH SCREEN MAMMO-MALIGN NEOPLASM OF BREN 10/31/2016 STEPHANIE VERA MD Ot 611.72 LUMP OR MASS IN BREAST 10/31/2016 STEPHANIE VERA MD Ot 793.80 UNSPEC ABNORMAL MAMMOGRAM 10/31/2016 STEPHANIE VERA MD Ot 427.31 ATRIAL FIBRILLATION 10/31/2016 STEPHANIE VERA MD Ot 786.6 CHEST SWELLING/MASS/LUMP 10/31/2016 STEPHANIE VERA MD Ot 793.89 OTH (ABN) FINDINGS ON RADIOLOGICAL EXAMI 10/31/2016 AFSANEH ADLER MD Ot 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 10/31/2016 AFSANEH ADLER MD Ot V72.83 EXAM PRE-OPERATIVE NEC 10/31/2016 AFSANEH ADLER MD Ot V74.8 SCREEN-BACTERIAL DIS NEC 10/31/2016 Ot 427.31 ATRIAL FIBRILLATION 10/31/2016 Ot V58.61 ANTICOAGULANTS,LT,CURRENT USE 10/31/2016 ZURI LEE MD Ot 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 10/31/2016 SHANTAL HONG, AMANDEEP Dean Ot E03.9 HYPOTHYROIDISM, UNSPECIFIED 10/31/2016 AMANDEEP MURGUIA MD Ot Z51.81 ENCOUNTER FOR THERAPEUTIC DRUG LEVEL MON 10/31/2016 AMANDEEP MURGUIA MD Ot Z79.01 WAITER/WAITRESS FIRST CLASS (CURRENT) USE OF ANTICOAGULANT 10/31/2016 BAIMA, STACEY L SHEET ROCK APPLIER Ot I07.1 RHEUMATIC TRICUSPID INSUFFICIENCY 10/31/2016 BAIMA, STACEY L SHEET ROCK APPLIER Ot I10 ESSENTIAL (PRIMARY) HYPERTENSION 10/31/2016 BAIMA, STACEY L SHEET ROCK APPLIER Ot I34.0 NONRHEUMATIC MITRAL (VALVE) INSUFFICIENC 10/31/2016 BAIMA, STACEY L SHEET ROCK APPLIER Ot I48.2 CHRONIC ATRIAL FIBRILLATION 10/31/2016 BAIMA, STACEY L SHEET ROCK APPLIER Ot I49.5 SICK SINUS SYNDROME 10/31/2016 BAIMA, STACEY L SHEET ROCK APPLIER Ot Z79.01 DETENTION (CURRENT) USE OF ANTICOAGULANT 10/31/2016 ROSA HONG, ZURI Cramer Ot C50.911 MALIGNANT NEOPLASM OF UNSP SITE OF RIGHT 10/31/2016 BAIMA, STACEY L SHEET ROCK APPLIER Ot R06.00 DYSPNEA, UNSPECIFIED 10/31/2016 BAIMA, STACEY L SHE[employer] ROCK APPLIER Ot R60.9 EDEMA, UNSPECIFIED 10/31/2016 BAIMA, STACEY L SHE[employer] ROCK APPLIER Ot R06.00 DYSPNEA, UNSPECIFIED 10/31/2016 BAIMA, STACEY L SHEET ROCK APPLIER Ot R60.9 EDEMA, UNSPECIFIED 10/31/2016 BAIMA, STACEY L SHEET ROCK APPLIER Ot E87.6 HYPOKALEMIA 10/31/2016 BAIMA, STACEY L SHE[employer] ROCK APPLIER Ot I10 ESSENTIAL (PRIMARY) HYPERTENSION 10/31/2016 BAIMA, STACEY L SHEET ROCK APPLIER Ot I49.5 SICK SINUS SYNDROME 10/31/2016 BAIMA, STACEY L SHEET ROCK APPLIER Ot R60.9 EDEMA, UNSPECIFIED 10/31/2016 ROSA HONG, ZURI Cramer Ot C50.911 MALIGNANT NEOPLASM OF UNSP SITE OF RIGHT 10/31/2016 ZURI LEE MD Ot I10 ESSENTIAL (PRIMARY) HYPERTENSION 10/31/2016 ZURI LEE MD Ot I25.10 ATHSCL HEART DISEASE OF [place] CORONARY 10/31/2016 ZURI LEE MD Ot I48.91 UNSPECIFIED ATRIAL FIBRILLATION 10/31/2016 ZURI LEE MD Ot I49.5 SICK SINUS SYNDROME 10/31/2016 ZURI LEE MD Ot L71.9 ROSACEA, UNSPECIFIED 10/31/2016 ZURI LEE MD Ot Z17.0 ESTROGEN RECEPTOR POSITIVE STATUS [ER+] 10/31/2016 ZURI LEE MD Ot Z79.01 WAITER/WAITRESS FIRST CLASS (CURRENT) USE OF ANTICOAGULANT 10/31/2016 ZURI LEE MD Ot Z79.899 OTHER WAITER/WAITRESS FIRST CLASS (CURRENT) DRUG THERAPY 10/31/2016 STACEY CURRY SHE[employer]OCK APPLIER Ot I10 ESSENTIAL (PRIMARY) HYPERTENSION 10/31/2016 STACEY CURRY SHE[employer] APPLIER Ot I48.2 CHRONIC ATRIAL FIBRILLATION 10/31/2016 STACEY CURRY SHE[employer]OCK APPLIER Ot I50.31 ACUTE DIASTOLIC (CONGESTIVE) HEART FAILU 10/31/2016 STACEY CURRY SHE[employer]OCK APPLIER Ot I65.23 OCCLUSION AND STENOSIS OF BILATERAL [place] 10/31/2016 STACEY CURRY SHE[employer]OCK APPLIER Ot R07.89 OTHER CHEST PAIN 10/31/2016 STACEY CURRY SHE[employer]OCK APPLIER Ot Z79.01 DETENTION (CURRENT) USE OF ANTICOAGULANT 11/01/2016 DARRYL GARCIA SHE[employer] APPLIER Ot M25.511 PAIN IN RIGHT SHOULDER 11/01/2016 DARRYL GARCIA [employer] APPLIER Ot M41.9 SCOLIOSIS, UNSPECIFIED 11/28/2016 DARRYL GARCIA [employer] APPLIER Ot M25.511 PAIN IN RIGHT SHOULDER 11/28/2016 DARRYL GARCIA SHE[employer]OCK APPLIER Ot M41.9 SCOLIOSIS, UNSPECIFIED 12/06/2016 DARRYL GARCIA SHE[employer]OCK APPLIER Ot M25.511 PAIN IN RIGHT SHOULDER 12/06/2016 DARRYL GARCIA SHE[employer]OCK APPLIER Ot M41.9 SCOLIOSIS, UNSPECIFIED 01/11/2017 ZURI LEE MD Ot C50.411 MALIG NEOPLM OF UPPER-OUTER QUADRANT OF 01/11/2017 ZURI LEE MD Ot I10 ESSENTIAL (PRIMARY) HYPERTENSION 01/11/2017 ZURI LEE MD Ot I25.10 ATHSCL HEART DISEASE OF [place] CORONARY 01/11/2017 ZURI LEE MD Ot I48.91 UNSPECIFIED ATRIAL FIBRILLATION 01/11/2017 ZURI LEE MD Ot I49.5 SICK SINUS SYNDROME 01/11/2017 ZURI LEE MD Ot L71.9 ROSACEA, UNSPECIFIED 01/11/2017 ZURI LEE MD Ot Z17.0 ESTROGEN RECEPTOR POSITIVE STATUS [ER+] 01/11/2017 ZURI LEE MD Ot Z79.01 DETENTION (CURRENT) USE OF ANTICOAGULANT 01/11/2017 ZURI LEE MD Ot Z79.811 WAITER/WAITRESS FIRST CLASS (CURRENT) USE OF AROMATASE INH 01/11/2017 ZURI LEE MD Ot Z79.899 OTHER WAITER/WAITRESS FIRST CLASS (CURRENT) DRUG THERAPY 01/17/2017 ZURI LEE MD Ot C50.411 MALIG NEOPLM OF UPPER-OUTER QUADRANT OF 01/17/2017 ZURI LEE MD Ot I10 ESSENTIAL (PRIMARY) HYPERTENSION 01/17/2017 ZURI LEE MD Ot I25.10 ATHSCL HEART DISEASE OF [place] CORONARY 01/17/2017 ZURI LEE MD Ot I48.91 UNSPECIFIED ATRIAL FIBRILLATION 01/17/2017 ZURI LEE MD Ot I49.5 SICK SINUS SYNDROME 01/17/2017 ZURI LEE MD, Ot L71.9 ROSACEA, UNSPECIFIED 01/17/2017 ZURI LEE MD Ot Z17.0 ESTROGEN RECEPTOR POSITIVE STATUS [ER+] 01/17/2017 UZRI LEE MD, Ot Z79.01 DETENTION (CURRENT) USE OF ANTICOAGULANT 01/17/2017 ZURI LEE MD, Ot Z79.811 DETENTION (CURRENT) USE OF AROMATASE INH 01/17/2017 ZURI LEE MD Ot Z79.899 OTHER DETENTION (CURRENT) DRUG THERAPY 02/07/2017 ZURI LEE MD Ot C50.411 MALIG NEOPLM OF UPPER-OUTER QUADRANT OF 02/07/2017 ZURI LEE MD Ot C50.411 MALIG NEOPLM OF UPPER-OUTER QUADRANT OF 02/07/2017 ZURI LEE MD Ot C50.411 MALIG NEOPLM OF UPPER-OUTER QUADRANT OF 02/07/2017 ZURI LEE MD, Ot C50.411 MALIG NEOPLM OF UPPER-OUTER QUADRANT OF 02/12/2017 ZURI LEE MD Ot C50.411 MALIG NEOPLM OF UPPER-OUTER QUADRANT OF 02/28/2017 ZURI LEE MD Ot C50.411 MALIG NEOPLM OF UPPER-OUTER QUADRANT OF 02/28/2017 ZURI LEE MD Ot I10 ESSENTIAL (PRIMARY) HYPERTENSION 02/28/2017 ZURI LEE MD, Ot I25.10 ATHSCL HEART DISEASE OF [place] CORONARY 02/28/2017 ZURI LEE MD, Ot I48.91 UNSPECIFIED ATRIAL FIBRILLATION 02/28/2017 ZURI LEE MD, Ot I49.5 SICK SINUS SYNDROME 02/28/2017 ZURI LEE MD, Ot L71.9 ROSACEA, UNSPECIFIED 02/28/2017 ZURI LEE MD, Ot Z17.0 ESTROGEN RECEPTOR POSITIVE STATUS [ER+] 02/28/2017 ZURI LEE MD, Ot Z79.01 DETENTION (CURRENT) USE OF ANTICOAGULANT 02/28/2017 ZURI LEE MD, Ot Z79.811 WAITER/WAITRESS FIRST CLASS (CURRENT) USE OF AROMATASE INH 02/28/2017 ZURI LEE MD, Ot Z79.899 OTHER WAITER/WAITRESS FIRST CLASS (CURRENT) DRUG THERAPY 03/05/2017 ZURI LEE MD, Ot C50.411 MALIG NEOPLM OF UPPER-OUTER QUADRANT OF 03/08/2017 ZURI LEE MD, Ot C50.411 MALIG NEOPLM OF UPPER-OUTER QUADRANT OF Procedures Code Description Performed By Performed On 40.11 LYMPHATIC STRUCT BIOPSY 02/27/2014 85.41 UNILAT SIMPLE MASTECTOMY 02/27/2014 Results Test Result Range Complete blood count (CBC) with automated white blood cell (WBC) differential - 05/23/16 17:52 Blood leukocytes automated count (number/volume) 9.0 10*3/ uL 4.3-11.0 Blood erythrocytes automated count (number/volume) 4.04 10*6 /uL 4.35-5.85 Venous blood hemoglobin measurement (mass/volume) 12.4 g/dL 11.5-16.0 Blood hematocrit (volume fraction) 38 % 35-52 Automated erythrocyte mean corpuscular volume 94 [foz_us] 80-99 Automated erythrocyte mean corpuscular hemoglobin (mass per erythrocyte) 31 pg 25-34 Automated erythrocyte mean corpuscular hemoglobin concentration measurement ( mass/volume) 33 g/dL 32-36 Automated erythrocyte distribution width ratio 14.9 % 10.0-14.5 Automated blood platelet count (count/volume) 242 10*3/uL 130-400 Automated blood platelet mean volume measurement 9.7 [foz_us ] 7.4-10.4 Automated blood neutrophils/100 leukocytes 72 % 42-75 Automated blood lymphocytes/100 leukocytes 19 % 12-44 Blood monocytes/100 leukocytes 8 % 0-12 Automated blood eosinophils/100 leukocytes 1 % 0-10 Automated blood basophils/100 leukocytes 0 % 0-10 Blood neutrophils automated count (number/volume) 6.4 10*3 1.8-7.8 Blood lymphocytes automated count (number/volume) 1.7 10*3 1.0-4.0 Blood monocytes automated count (number/volume) 0.8 10*3 0.0-1.0 Automated eosinophil count 0.1 10*3/uL 0.0-0.3 Automated blood basophil count (count/volume) 0.0 10*3/uL 0.0-0.1 Comprehensive metabolic panel - 05/23/16 17:52 Serum or plasma sodium measurement (moles/volume) 135 mmol/ L 135-145 Serum or plasma potassium measurement (moles/volume) 4.3 mmol/L 3.6-5.0 Serum or plasma chloride measurement (moles/volume) 100 mmol /L 98-107 Carbon dioxide 23 mmol/L 21-32 Serum or plasma anion gap determination (moles/volume) 12 mmol/L 5-14 Serum or plasma urea nitrogen measurement (mass/volume) 21 mg/dL 7-18 Serum or plasma creatinine measurement (mass/volume) 0.93 mg /dL 0.60-1.30 Serum or plasma urea nitrogen/creatinine mass ratio 23 NRG Serum or plasma creatinine measurement with calculation of estimated glomerular filtration rate 57 NRG Serum or plasma glucose measurement (mass/volume) 111 mg/dL 70-105 Serum or plasma calcium measurement (mass/volume) 9.4 mg/dL 8.5-10.1 Serum or plasma total bilirubin measurement (mass/volume) 0.7 mg/dL 0.1-1.0 Serum or plasma alkaline phosphatase measurement (enzymatic activity/volume) 49 U/L 40-136 Serum or plasma aspartate aminotransferase measurement (enzymatic activity/ volume) 20 U/L 5-34 Serum or plasma alanine aminotransferase measurement (enzymatic activity/volume ) 18 U/L 0-55 Serum or plasma protein measurement (mass/volume) 7.2 g/dL 6.4-8.2 Serum or plasma albumin measurement (mass/volume) 4.3 g/dL 3.2-4.5 Serum or plasma troponin i.cardiac measurement (mass/volume) - 05/23/16 17:52 Serum or plasma troponin i.cardiac measurement (mass/volume) < ng/mL <0.30 Serum or plasma thyrotropin measurement by detection limit <=0.05 miu/l (units/ volume) - 05/23/16 17:52 Serum or plasma thyrotropin measurement by detection limit <=0.05 miu/l (units/ volume) 1.62 u[iU]/mL 0.35-4.94 Serum or plasma lithium measurement (moles/volume) - 05/23/16 17:52 BNP level 688.2 pg/mL <100.0 PT panel in platelet poor plasma by coagulation assay - 05/23/16 18:28 Prothrombin time (PT) in platelet poor plasma by coagulation assay 26.1 s 12.2-14.7 INR in platelet poor plasma or blood by coagulation assay 2.4 0.8-1.4 Activated partial thromboplastin time (aPTT) in platelet poor plasma bycoagulation assay - 05/23/16 18:28 Activated partial thromboplastin time (aPTT) in platelet poor plasma bycoagulation assay 57 s 24-35 Fibrin D-dimer FEU measurement in platelet poor plasma (mass/volume) - 18:28 Fibrin D-dimer FEU measurement in platelet poor plasma (mass/volume) 0.67 ug/mL 0.00-0.49 Complete urinalysis with reflex to culture - 05/23/16 18:33 Urine color determination YELLOW NRG Urine clarity determination CLEAR NRG Urine pH measurement by test strip 7 5- 9 Specific gravity of urine by test strip 1.010 1.016-1.022 Urine protein assay by test strip, semi-quantitative NEGATIVE NEGATIVE Urine glucose detection by automated test strip NEGATIVE NEGATIVE Erythrocytes detection in urine sediment by light microscopy 1+ NEGATIVE Urine ketones detection by automated test strip NEGATIVE NEGATIVE Urine nitrite detection by test strip NEGATIVE NEGATIVE Urine total bilirubin detection by test strip NEGATIVE NEGATIVE Urine urobilinogen measurement by automated test strip (mass/volume) NORMAL NORMAL Urine leukocyte esterase detection by dipstick NEGATIVE NEGATIVE Automated urine sediment erythrocyte count by microscopy (number/high power field) [HPF] NRG Automated urine sediment leukocyte count by microscopy (number/high power field ) RARE NRG Bacteria detection in urine sediment by light microscopy NEGATIVE NRG Crystals detection in urine sediment by light microscopy NONE NRG Casts detection in urine sediment by light microscopy NONE NRG Mucus detection in urine sediment by light microscopy NEGATIVE NRG Complete urinalysis with reflex to culture NO NRG Encounters ACCT No. Visit Date/Time Discharge Status Pt. Type Provider Facility Loc./Unit Complaint [id number] 11/30/2016 13:52:00 2016 00:01:00 DIS Outpatient ZURI LEE MD [facility] ONC [id number] 05/23/2016 17:41:00 2015 19:32:00 DIS Emergency SONJA CORRAL MD [facility] ER MEMORY ISSUES/HEADACHE/ VISION ISSUES [id number] 02/17/2016 12:57:00 2015 13:07:00 DIS Outpatient ZURI LEE MD [facility] ONC [id number] 04/06/2016 13:02:00 2015 13:39:00 DIS Outpatient DAYLIN HULL MD [facility] REHAB HOARSENESS [id number] 11/04/2015 08:56:00 2015 00:01:00 DIS Outpatient ZURI LEE MD [facility] ONC [id number] 07/29/2015 12:54:00 2015 00:01:00 DIS Outpatient ZURI LEE MD [facility] ONC [id number] 09/20/2015 13:46:00 2014 23:59:59 CLS Outpatient STACEY CURRY [facility] CARD AFIB,HTN [id number] 07/29/2015 13:25:00 2014 23:59:59 CLS Outpatient AMANDEEP MURGUIA MD [facility] LAB [id number] 07/29/2015 13:27:00 2014 13:27:00 REZA OVALLES MD FACCRAFAL FACP CCDS [facility] LAB [id number] 04/27/2015 12:57:00 2014 00:01:00 DIS Outpatient ZURI LEE MD [facility] ONC [id number] 01/28/2015 13:00:00 2014 00:01:00 DIS Outpatient ZURI LEE MD [facility] ONC [id number] 01/25/2015 08:57:00 2014 23:59:59 CLS Outpatient ZURI LEE MD [facility] RAD HX OF BREAST CA [id number] 07/28/2014 12:50:00 2014 00:01:00 DIS Outpatient ZURI LEE MD [facility] ONC [id number] 04/27/2014 14:19:00 2013 00:01:00 DIS Outpatient ZURI LEE MD [facility] ONC [id number] 02/06/2014 09:19:00 2013 00:01:00 DIS Outpatient STEPHANIE VERA MD [facility] LAB COUMADIN [place],AFIB [id number] 02/27/2014 07:33:00 2013 12:00:00 DIS Inpatient AFSANEH ADLER MD [facility] SURGICAL RIGHT BREAST CANCER [id number] 02/26/2014 14:53:00 2013 23:59:59 CLS Outpatient AFSANEH ADLER MD [facility] PREOP RIGHT BREAST CANCER [id number] 02/06/2014 09:19:00 2013 23:59:59 CLS Outpatient STEPHANIE VERA MD [facility] RAD SATELITE NODULE RT BREAST [id number] 01/21/2014 14:14:00 2013 23:59:59 CLS Outpatient STEPHANIE VERA MD [facility] RAD ABNORMAL MAMMO [id number] 01/15/2014 08:35:00 2013 23:59:59 CLS Outpatient STEPHANIE VERA MD [facility] RAD SCREENING [id number] 12/03/2013 11:56:00 2013 23:59:59 CLS Outpatient STEPHANIE VERA MD [facility] RAD FALL, LEFT SIDE PAIN,PT ON BLOOD THINNERS [id number] 07/21/2013 07:58:00 2012 23:59:59 CLS Outpatient JOSR HONG FACRonald, RAFAL FACP CCDS [facility] CARD CP [id number] 07/16/2013 14:13:00 2012 23:59:59 CLS Outpatient JOSR HONG FACC, RAFAL FACP CCDS [facility] RAD CP [id number] 07/14/2013 12:11:00 2012 23:59:59 CLS Outpatient STEPHANIE VERA MD [facility] RAD CP [id number] 03/01/2017 00:16:00 PEN Preadmit ZURI LEE MD [facility] ONC [id number] 02/07/2017 12:59:00 ACT Outpatient ZURI LEE MD [facility] RAD BREAST CA RT BREAST [id number] 10/31/2016 13:59:00 ACT Outpatient DARRYL GARCIA SHE[employer]OCK APPLIER [facility] RAD RT SHOULDER PAIN,THORACIC BACK PAIN [id number] 06/09/2016 06:47:00 ACT Outpatient BAISTACEY CHAPARRO [employer] APPLIER [facility] CARD CHEST DISCOMFORT,CHF,HTN [id number] 05/18/2016 12:55:00 ACT Outpatient ZURI LEE MD [facility] ONC [id number] 02/10/2016 08:41:00 ACT Outpatient ZURI LEE MD [facility] RAD 1 YEAR FOLLOW UP [id number] 02/01/2016 08:22:00 ACT Outpatient MIQUEL CURRYHER L [employer] APPLIER [facility] CARD HTN,SINUS NODE DYSFUNCTION,EDEMA,HYPOKALEMIA [id number] 01/17/2016 08:29:00 ACT Outpatient BAIMIQUEL CHAPARROHER L [employer] [place] APPLIER [facility] LAB EDEMA,DYSPNEA [id number] 01/12/2016 14:02:00 ACT Outpatient BAISHANKAR STACEY L [employer] APPLIER [facility] RAD EDEMA,DYSPNEA [id number] 05/08/2014 00:00:00 Document Registration [id number] 11/19/2012 13:16:00 Document Registration [id number] 10/23/2012 11:11:00 Document Registration [id number] 10/07/2012 09:21:00 Document Registration [id number] 09/17/2012 08:18:00 Document Registration [id number] 07/25/2012 13:35:00 Document Registration [id number] 04/29/2012 13:36:00 Document Registration [id number] 04/17/2012 15:29:00 Document Registration [id number] 01/25/2012 06:53:00 Document Registration [id number] 01/19/2012 08:42:00 Document Registration [id number] 12/20/2011 14:11:00 Document Registration [id number] 09/07/2011 10:11:00 Document Registration [id number] 08/23/2011 13:14:00 Document Registration [id number] 07/25/2011 07:48:00 Document Registration [id number] 07/20/2011 08:14:00 Document Registration [id number] 05/17/2011 13:20:00 Document Registration
--- OUTSIDE RECORDS SUMMARY | 2017-04-16 17:43 | XMS REPORT | Continuity of Care Document ---
Author Author [facility] Organization [facility] Address Unknown Phone Unavailable Allergies Active Description Code Type Severity Reaction Onset Reported/Identified Relationship to Patient Clinical Status Yes No Known Drug Allergies [id number] Drug Allergy Unknown N/ A 01/18/2012 Medications [...] HONG, ZURI K Ot V58.61 04/28/2015 ROSA HONG, ZURI K Ot 174.9 04/28/2015 ROSA HONG, ZURI K Ot 397.0 04/28/2015 ROSA HONG, ZURI K Ot 401.9 04/28/2015 ROSA HONG, ZURI K Ot 424.0 04/28/2015 ROSA HONG, ZURI K Ot 427.31 04/28/2015 ROSA HONG, [...] ROSA HONG, ZURI Cramer Ot 427.81 06/18/2015 ROSA HONG, ZURI Cramer Ot V58.61 07/21/2015 ROSA [...] Cramer Ot Z79.899 10/14/2015 BAIMA, STACEY L ASSOCIATE PROGRAM MANAGER Ot I07.1 10/14/2015 BAIMA, STACEY L ASSOCIATE PROGRAM MANAGER Ot I10 10/14/2015 BAIMA, STACEY L ASSOCIATE PROGRAM MANAGER Ot I34.0 10/14/2015 BAIMA, STACEY L ASSOCIATE PROGRAM MANAGER Ot I48.2 10/14/2015 BAIMA, STACEY L ASSOCIATE PROGRAM MANAGER Ot I49.5 10/14/2015 BAIMA, STACEY L ASSOCIATE PROGRAM MANAGER Ot Z79.01 10/25/2015 BAIMA, STACEY L ASSOCIATE PROGRAM MANAGER Ot I07.1 10/25/2015 BAIMA, STACEY L ASSOCIATE PROGRAM MANAGER Ot I10 10/25/2015 BAIMA, STACEY L ASSOCIATE PROGRAM MANAGER Ot I34.0 10/25/2015 BAIMA, STACEY L ASSOCIATE PROGRAM MANAGER Ot I48.2 10/25/2015 BAIMA, STACEY L ASSOCIATE PROGRAM MANAGER Ot I49.5 10/25/2015 BAIMA, STACEY L ASSOCIATE PROGRAM MANAGER Ot Z79.01 10/27/2015 ROSA HONG, ZURI Cramer Ot C50.911 MALIGNANT NEOPLASM OF UNSP SITE OF RIGHT 10/27/2015 ROSA HONG, ZURI Cramer Ot I10 ESSENTIAL (PRIMARY) HYPERTENSION 10/27/2015 ROSA HONG, ZURI Cramer Ot I25.10 ATHSCL HEART DISEASE OF [place] CORONARY 10/27/2015 ROSA HONG, ZURI Cramer Ot I48.91 UNSPECIFIED ATRIAL FIBRILLATION 10/27/2015 ROSA HONG, ZURI Cramer Ot I49.5 SICK SINUS SYNDROME 10/27/2015 ROSA HONG, ZURI Cramer Ot L71.9 ROSACEA, UNSPECIFIED 10/27/2015 ZURI LEE MD Ot Z17.0 ESTROGEN RECEPTOR POSITIVE STATUS [ER+] 10/27/2015 ROSA HONG, ZURI Cramer Ot Z79.01 INDEPENDENT BEAUTY CONSULTANT (CURRENT) USE OF ANTICOAGULANT 10/27/2015 ROSA HONG, ZURI Cramer Ot Z79.899 OTHER INDEPENDENT BEAUTY CONSULTANT (CURRENT) DRUG THERAPY 10/29/2015 ROSA HONG, ZURI [...] STACEY CURRY Ot R06.00 01/13/2016 ALESIASTACEY CHAPARRO ASSOCIATE PROGRAM MANAGER Ot R60.9 01/18/2016 BAIMA, STACEY Garcia ASSOCIATE PROGRAM MANAGER Ot R06.00 01/18/2016 BAISTACEY CHAPARRO L ASSOCIATE PROGRAM MANAGER Ot R60.9 02/01/2016 BAIMASTACEY ASSOCIATE PROGRAM MANAGER Ot R06.00 02/01/2016 BAISTACEY CHAPARRO ASSOCIATE PROGRAM MANAGER Ot R60.9 02/02/2016 ZURI LEE MD Ot C50.911 MALIGNANT NEOPLASM OF UNSP SITE OF RIGHT 02/02/2016 ZURI LEE MD Ot I10 ESSENTIAL (PRIMARY) HYPERTENSION 02/02/2016 ZURI LEE MD Ot I25.10 ATHSCL HEART DISEASE OF [place] CORONARY 02/02/2016 ZURI LEE MD Ot I48.91 UNSPECIFIED ATRIAL FIBRILLATION 02/02/2016 ZURI LEE MD, Ot I49.5 SICK SINUS SYNDROME 02/02/2016 ZURI LEE MD Ot L71.9 ROSACEA, UNSPECIFIED 02/02/2016 ZURI LEE MD Ot Z17.0 ESTROGEN RECEPTOR POSITIVE STATUS [ER+] 02/02/2016 ZURI LEE MD Ot Z79.01 INDEPENDENT BEAUTY CONSULTANT (CURRENT) USE OF ANTICOAGULANT 02/02/2016 ZURI LEE MD Ot Z79.899 OTHER CARE HOME (CURRENT) DRUG THERAPY 02/02/2016 STACEY CURRY ASSOCIATE PROGRAM MANAGER Ot E87.6 02/02/2016 ALESIASTACEY CHAPARRO ASSOCIATE PROGRAM MANAGER Ot I10 02/02/2016 ALESIASTACEY CHAPARRO ASSOCIATE PROGRAM MANAGER Ot I49.5 02/02/2016 ALESIASTACEY CHAPARRO ASSOCIATE PROGRAM MANAGER Ot R60.9 02/07/2016 ZURI LEE MD, Ot C50.911 MALIGNANT NEOPLASM OF UNSP SITE OF RIGHT 02/07/2016 ZURI LEE MD Ot I10 ESSENTIAL (PRIMARY) HYPERTENSION 02/07/2016 ZURI LEE MD Ot I25.10 ATHSCL HEART DISEASE OF [place] CORONARY 02/07/2016 ZURI LEE MD Ot I48.91 UNSPECIFIED ATRIAL FIBRILLATION 02/07/2016 ZURI LEE MD Ot I49.5 SICK SINUS SYNDROME 02/07/2016 ZURI LEE MD Ot L71.9 ROSACEA, UNSPECIFIED 02/07/2016 ZURI LEE MD Ot Z17.0 ESTROGEN RECEPTOR POSITIVE STATUS [ER+] 02/07/2016 ZURI LEE MD, Ot Z79.01 INDEPENDENT BEAUTY CONSULTANT (CURRENT) USE OF ANTICOAGULANT 02/07/2016 ZURI LEE MD Ot Z79.899 OTHER INDEPENDENT BEAUTY CONSULTANT (CURRENT) DRUG THERAPY 02/08/2016 ZURI LEE MD, Ot C50.911 MALIGNANT NEOPLASM OF UNSP SITE OF RIGHT 02/08/2016 ZURI LEE MD Ot I10 ESSENTIAL (PRIMARY) HYPERTENSION 02/08/2016 ZURI LEE MD Ot I25.10 ATHSCL HEART DISEASE OF [place] CORONARY 02/08/2016 ZURI LEE MD, Ot I48.91 UNSPECIFIED ATRIAL FIBRILLATION 02/08/2016 ZURI LEE MD, Ot I49.5 SICK SINUS SYNDROME 02/08/2016 ZURI LEE MD, Ot L71.9 ROSACEA, UNSPECIFIED 02/08/2016 ZURI LEE MD Ot Z17.0 ESTROGEN RECEPTOR POSITIVE STATUS [ER+] 02/08/2016 ZURI LEE MD, Ot Z79.01 INDEPENDENT BEAUTY CONSULTANT (CURRENT) USE OF ANTICOAGULANT 02/08/2016 ZURI LEE MD, Ot Z79.899 OTHER CARE HOME (CURRENT) DRUG THERAPY 02/09/2016 BAIMA, STACEY L ASSOCIATE PROGRAM MANAGER Ot R06.00 DYSPNEA, UNSPECIFIED 02/09/2016 BAIMA, STACEY L ASSOCIATE PROGRAM MANAGER Ot R60.9 EDEMA, UNSPECIFIED 02/10/2016 BAIMA, STACEY L ASSOCIATE PROGRAM MANAGER Ot R06.00 DYSPNEA, UNSPECIFIED 02/10/2016 BAIMA, STACEY L ASSOCIATE PROGRAM MANAGER Ot R60.9 EDEMA, UNSPECIFIED 02/18/2016 ZURI LEE MD, Ot C50.911 MALIGNANT NEOPLASM OF UNSP SITE OF RIGHT 02/18/2016 ZURI LEE MD Ot I10 ESSENTIAL (PRIMARY) HYPERTENSION 02/18/2016 ZURI LEE MD Ot I25.10 ATHSCL HEART DISEASE OF [place] CORONARY 02/18/2016 ZURI LEE MD Ot I48.91 UNSPECIFIED ATRIAL FIBRILLATION 02/18/2016 ZURI LEE MD, Ot I49.5 SICK SINUS SYNDROME 02/18/2016 ZURI LEE MD Ot L71.9 ROSACEA, UNSPECIFIED 02/18/2016 ZURI LEE MD Ot Z17.0 ESTROGEN RECEPTOR POSITIVE STATUS [ER+] 02/18/2016 ZURI LEE MD Ot Z79.01 CARE HOME (CURRENT) USE OF ANTICOAGULANT 02/18/2016 ZURI LEE MD, Ot Z79.899 OTHER CARE HOME (CURRENT) DRUG THERAPY 02/23/2016 STACEY CURRY ASSOCIATE PROGRAM MANAGER Ot E87.6 HYPOKALEMIA 02/23/2016 ALESIASTACEY CHAPARRO ASSOCIATE PROGRAM MANAGER Ot I10 ESSENTIAL (PRIMARY) HYPERTENSION 02/23/2016 STACEY CURRY ASSOCIATE PROGRAM MANAGER Ot I49.5 SICK SINUS SYNDROME 02/23/2016 STACEY CURRY ASSOCIATE PROGRAM MANAGER Ot R60.9 EDEMA, UNSPECIFIED 03/01/2016 ZURI LEE MD Ot C50.911 MALIGNANT NEOPLASM OF UNSP SITE OF RIGHT 03/01/2016 STACEY CURRY ASSOCIATE PROGRAM MANAGER Ot E87.6 HYPOKALEMIA 03/01/2016 ALESIASTACEY CHAPARRO ASSOCIATE PROGRAM MANAGER Ot I10 ESSENTIAL (PRIMARY) HYPERTENSION 03/01/2016 STACEY CURRY ASSOCIATE PROGRAM MANAGER Ot I49.5 SICK SINUS SYNDROME 03/01/2016 ALESIASTACEY CHAPARRO ASSOCIATE PROGRAM MANAGER Ot R60.9 EDEMA, UNSPECIFIED 03/10/2016 ZURI LEE MD Ot C50.911 MALIGNANT NEOPLASM OF UNSP SITE OF RIGHT 03/13/2016 ZURI LEE MD, Ot C50.911 MALIGNANT NEOPLASM OF UNSP SITE OF RIGHT 03/13/2016 ZURI LEE MD Ot I10 ESSENTIAL (PRIMARY) HYPERTENSION 03/13/2016 ZURI LEE MD Ot I25.10 ATHSCL HEART DISEASE OF [place] CORONARY 03/13/2016 ZURI LEE MD Ot I48.91 UNSPECIFIED ATRIAL FIBRILLATION 03/13/2016 ZURI LEE MD Ot I49.5 SICK SINUS SYNDROME 03/13/2016 ZURI LEE MD Ot L71.9 ROSACEA, UNSPECIFIED 03/13/2016 ZURI LEE MD Ot Z17.0 ESTROGEN RECEPTOR POSITIVE STATUS [ER+] 03/13/2016 ZURI LEE MD, Ot Z79.01 INDEPENDENT BEAUTY CONSULTANT (CURRENT) USE OF ANTICOAGULANT 03/13/2016 ZURI LEE MD, Ot Z79.899 OTHER CARE HOME (CURRENT) DRUG THERAPY 03/22/2016 ZURI LEE MD Ot C50.911 MALIGNANT NEOPLASM OF UNSP SITE OF RIGHT 03/22/2016 ZURI LEE MD Ot I10 ESSENTIAL (PRIMARY) HYPERTENSION 03/22/2016 ZURI LEE MD Ot I25.10 ATHSCL HEART DISEASE OF [place] CORONARY 03/22/2016 ZURI LEE MD Ot I48.91 UNSPECIFIED ATRIAL FIBRILLATION 03/22/2016 ZURI LEE MD Ot I49.5 SICK SINUS SYNDROME 03/22/2016 ZURI LEE MD Ot L71.9 ROSACEA, UNSPECIFIED 03/22/2016 ZURI LEE MD Ot Z17.0 ESTROGEN RECEPTOR POSITIVE STATUS [ER+] 03/22/2016 ZURI LEE MD Ot Z79.01 INDEPENDENT BEAUTY CONSULTANT (CURRENT) USE OF ANTICOAGULANT 03/22/2016 ZURI LEE MD Ot Z79.899 OTHER INDEPENDENT BEAUTY CONSULTANT (CURRENT) DRUG THERAPY 03/28/2016 DAYLIN HULL MD P Ot R49.0 DYSPHONIA 04/06/2016 DAYLIN HULL MD P Ot R49.0 DYSPHONIA 05/17/2016 ZURI LEE MD Ot C50.911 MALIGNANT NEOPLASM OF UNSP SITE OF RIGHT 05/17/2016 ZURI LEE MD Ot I10 ESSENTIAL (PRIMARY) HYPERTENSION 05/17/2016 ZURI LEE MD Ot I25.10 ATHSCL HEART DISEASE OF [place] CORONARY 05/17/2016 ZURI LEE MD Ot I48.91 UNSPECIFIED ATRIAL FIBRILLATION 05/17/2016 ZURI LEE MD Ot I49.5 SICK SINUS SYNDROME 05/17/2016 ZURI LEE MD Ot L71.9 ROSACEA, UNSPECIFIED 05/17/2016 ZURI LEE MD Ot Z17.0 ESTROGEN RECEPTOR POSITIVE STATUS [ER+] 05/17/2016 ZURI LEE MD Ot Z79.01 INDEPENDENT BEAUTY CONSULTANT (CURRENT) USE OF ANTICOAGULANT 05/17/2016 ZURI LEE MD Ot Z79.899 OTHER CARE HOME (CURRENT) DRUG THERAPY 05/23/2016 SHAYNA OHNG, SONJA T Ot E87.70 FLUID OVERLOAD, UNSPECIFIED [...] Hunt Ot R51 HEADACHE 06/09/2016 STACEY CURRY ASSOCIATE PROGRAM MANAGER Ot I10 ESSENTIAL (PRIMARY) HYPERTENSION 06/09/2016 STACEY CURRY ASSOCIATE PROGRAM MANAGER Ot I48.2 CHRONIC ATRIAL FIBRILLATION 06/09/2016 STACEY CURRY ASSOCIATE PROGRAM MANAGER Ot I50.31 ACUTE DIASTOLIC (CONGESTIVE) HEART FAILU 06/09/2016 STACEY CURRY ASSOCIATE PROGRAM MANAGER Ot I65.23 OCCLUSION AND STENOSIS OF BILATERAL [place] 06/09/2016 STACEY CURRY ASSOCIATE PROGRAM MANAGER Ot R07.89 OTHER CHEST PAIN 06/09/2016 STACEY CURRY ASSOCIATE PROGRAM MANAGER Ot Z79.01 CARE HOME (CURRENT) USE OF ANTICOAGULANT 06/12/2016 ZURI LEE MD Ot C50.911 MALIGNANT NEOPLASM OF UNSP SITE OF RIGHT 06/12/2016 ZURI LEE MD Ot I10 ESSENTIAL (PRIMARY) HYPERTENSION 06/12/2016 ZURI LEE MD Ot I25.10 ATHSCL HEART DISEASE OF [place] CORONARY 06/12/2016 ZURI LEE MD Ot I48.91 UNSPECIFIED ATRIAL FIBRILLATION 06/12/2016 ZURI LEE MD Ot I49.5 SICK SINUS SYNDROME 06/12/2016 ZURI LEE MD Ot L71.9 ROSACEA, UNSPECIFIED 06/12/2016 ZURI LEE MD Ot Z17.0 ESTROGEN RECEPTOR POSITIVE STATUS [ER+] 06/12/2016 ZURI LEE MD Ot Z79.01 CARE HOME (CURRENT) USE OF ANTICOAGULANT 06/12/2016 ZURI LEE MD Ot Z79.899 OTHER INDEPENDENT BEAUTY CONSULTANT (CURRENT) DRUG THERAPY 06/12/2016 STACEY CURRY ASSOCIATE PROGRAM MANAGER Ot I10 ESSENTIAL (PRIMARY) HYPERTENSION 06/12/2016 STACEY CURRY ASSOCIATE PROGRAM MANAGER Ot I48.2 CHRONIC ATRIAL FIBRILLATION 06/12/2016 STACEY CURRY L ASSOCIATE PROGRAM MANAGER Ot I50.31 ACUTE DIASTOLIC (CONGESTIVE) HEART FAILU 06/12/2016 ALESIASTACEY CHAPARRO L ASSOCIATE PROGRAM MANAGER Ot I65.23 OCCLUSION AND STENOSIS OF BILATERAL [place] 06/12/2016 ALESIASTACEY CHAPARRO L ASSOCIATE PROGRAM MANAGER Ot R07.89 OTHER CHEST PAIN 06/12/2016 PATRICIO STACEY L ASSOCIATE PROGRAM MANAGER Ot Z79.01 CARE HOME (CURRENT) USE OF ANTICOAGULANT 06/16/2016 ROSA HONG, ZURI Cramer Ot C50.911 MALIGNANT NEOPLASM OF UNSP SITE OF RIGHT 06/16/2016 ZURI LEE MD Ot I10 ESSENTIAL (PRIMARY) HYPERTENSION 06/16/2016 ZURI LEE MD Ot I25.10 ATHSCL HEART DISEASE OF [place] CORONARY 06/16/2016 ZURI LEE MD Ot I48.91 UNSPECIFIED ATRIAL FIBRILLATION 06/16/2016 ZURI LEE MD Ot I49.5 SICK SINUS SYNDROME 06/16/2016 ZURI LEE MD Ot L71.9 ROSACEA, UNSPECIFIED 06/16/2016 ZURI LEE MD Ot Z17.0 ESTROGEN RECEPTOR POSITIVE STATUS [ER+] 06/16/2016 ZURI LEE MD Ot Z79.01 CARE HOME (CURRENT) USE OF ANTICOAGULANT 06/16/2016 ZURI LEE MD Ot Z79.899 OTHER CARE HOME (CURRENT) DRUG THERAPY 06/30/2016 MIQUEL CURRYHER L ASSOCIATE PROGRAM MANAGER Ot I10 ESSENTIAL (PRIMARY) HYPERTENSION 06/30/2016 ALESIASHANKAR STACEY L ASSOCIATE PROGRAM MANAGER Ot I48.2 CHRONIC ATRIAL FIBRILLATION 06/30/2016 STACEY CURRY L ASSOCIATE PROGRAM MANAGER Ot I50.31 ACUTE DIASTOLIC (CONGESTIVE) HEART FAILU 06/30/2016 ALESIASHANKAR STACEY L ASSOCIATE PROGRAM MANAGER Ot I65.23 OCCLUSION AND STENOSIS OF BILATERAL [place] 06/30/2016 ALESIASTACEY CHAPARRO L ASSOCIATE PROGRAM MANAGER Ot R07.89 OTHER CHEST PAIN 06/30/2016 PATRICIO STACEY L ASSOCIATE PROGRAM MANAGER Ot Z79.01 INDEPENDENT BEAUTY CONSULTANT (CURRENT) USE OF ANTICOAGULANT 07/11/2016 PATRICIO STACEY L ASSOCIATE PROGRAM MANAGER Ot I10 ESSENTIAL (PRIMARY) HYPERTENSION 07/11/2016 PATRICIO STACEY L ASSOCIATE PROGRAM MANAGER Ot I48.2 CHRONIC ATRIAL FIBRILLATION 07/11/2016 ALESIAMAMIQUELSTACEY L ASSOCIATE PROGRAM MANAGER Ot I50.31 ACUTE DIASTOLIC (CONGESTIVE) HEART FAILU 07/11/2016 STACEY CURRY ASSOCIATE PROGRAM MANAGER Ot I65.23 OCCLUSION AND STENOSIS OF BILATERAL [place] 07/11/2016 STACEY CURRY ASSOCIATE PROGRAM MANAGER Ot R07.89 OTHER CHEST PAIN 07/11/2016 STACEY CURRY ASSOCIATE PROGRAM MANAGER Ot Z79.01 INDEPENDENT BEAUTY CONSULTANT (CURRENT) USE OF ANTICOAGULANT 10/31/2016 Ot 276.9 [...] MON 10/31/2016 AMANDEEP MURGUIA MD Ot Z79.01 INDEPENDENT BEAUTY CONSULTANT (CURRENT) USE OF ANTICOAGULANT 10/31/2016 BAIMA, STACEY L ASSOCIATE PROGRAM MANAGER Ot I07.1 RHEUMATIC TRICUSPID INSUFFICIENCY 10/31/2016 BAIMA, STACEY L ASSOCIATE PROGRAM MANAGER Ot I10 ESSENTIAL (PRIMARY) HYPERTENSION 10/31/2016 BAIMA, STACEY L ASSOCIATE PROGRAM MANAGER Ot I34.0 NONRHEUMATIC MITRAL (VALVE) INSUFFICIENC 10/31/2016 BAIMA, STACEY L ASSOCIATE PROGRAM MANAGER Ot I48.2 CHRONIC ATRIAL FIBRILLATION 10/31/2016 BAIMA, STACEY L ASSOCIATE PROGRAM MANAGER Ot I49.5 SICK SINUS SYNDROME 10/31/2016 BAIMA, STACEY L ASSOCIATE PROGRAM MANAGER Ot Z79.01 CARE HOME (CURRENT) USE OF ANTICOAGULANT 10/31/2016 ROSA HONG, ZURI Cramer Ot C50.911 MALIGNANT NEOPLASM OF UNSP SITE OF RIGHT 10/31/2016 BAIMA, STACEY L ASSOCIATE PROGRAM MANAGER Ot R06.00 DYSPNEA, UNSPECIFIED 10/31/2016 BAIMA, STACEY L ASSOCIATE PROGRAM MANAGER Ot R60.9 EDEMA, UNSPECIFIED 10/31/2016 BAIMA, STACEY L ASSOCIATE PROGRAM MANAGER Ot R06.00 DYSPNEA, UNSPECIFIED 10/31/2016 BAIMA, STACEY L ASSOCIATE PROGRAM MANAGER Ot R60.9 EDEMA, UNSPECIFIED 10/31/2016 BAIMA, STACEY L ASSOCIATE PROGRAM MANAGER Ot E87.6 HYPOKALEMIA 10/31/2016 BAIMA, STACEY L ASSOCIATE PROGRAM MANAGER Ot I10 ESSENTIAL (PRIMARY) HYPERTENSION 10/31/2016 BAIMA, STACEY L ASSOCIATE PROGRAM MANAGER Ot I49.5 SICK SINUS SYNDROME 10/31/2016 BAIMA, STACEY L ASSOCIATE PROGRAM MANAGER Ot R60.9 EDEMA, UNSPECIFIED 10/31/2016 ROSA HONG, ZURI Cramer Ot C50.911 MALIGNANT NEOPLASM OF UNSP SITE OF RIGHT 10/31/2016 ZURI LEE MD Ot I10 ESSENTIAL (PRIMARY) HYPERTENSION 10/31/2016 ZURI LEE MD Ot I25.10 ATHSCL HEART DISEASE OF [place] CORONARY 10/31/2016 ZURI LEE MD Ot I48.91 UNSPECIFIED ATRIAL FIBRILLATION 10/31/2016 ZURI LEE MD Ot I49.5 SICK SINUS SYNDROME 10/31/2016 ZURI LEE MD Ot L71.9 ROSACEA, UNSPECIFIED 10/31/2016 ZURI LEE MD Ot Z17.0 ESTROGEN RECEPTOR POSITIVE STATUS [ER+] 10/31/2016 ZURI LEE MD Ot Z79.01 INDEPENDENT BEAUTY CONSULTANT (CURRENT) USE OF ANTICOAGULANT 10/31/2016 ZURI LEE MD Ot Z79.899 OTHER INDEPENDENT BEAUTY CONSULTANT (CURRENT) DRUG THERAPY 10/31/2016 STACEY CURRY ASSOCIATE PROGRAM MANAGER Ot I10 ESSENTIAL (PRIMARY) HYPERTENSION 10/31/2016 STACEY CURRY ASSOCIATE PROGRAM MANAGER Ot I48.2 CHRONIC ATRIAL FIBRILLATION 10/31/2016 STACEY CURRY ASSOCIATE PROGRAM MANAGER Ot I50.31 ACUTE DIASTOLIC (CONGESTIVE) HEART FAILU 10/31/2016 STACEY CURRY ASSOCIATE PROGRAM MANAGER Ot I65.23 OCCLUSION AND STENOSIS OF BILATERAL [place] 10/31/2016 STACEY CURRY ASSOCIATE PROGRAM MANAGER Ot R07.89 OTHER CHEST PAIN 10/31/2016 STACEY CURRY ASSOCIATE PROGRAM MANAGER Ot Z79.01 CARE HOME (CURRENT) USE OF ANTICOAGULANT 11/01/2016 DARRYL GARCIA ASSOCIATE PROGRAM MANAGER Ot M25.511 PAIN IN RIGHT SHOULDER 11/01/2016 DARRYL GARCIA ASSOCIATE PROGRAM MANAGER Ot M41.9 SCOLIOSIS, UNSPECIFIED 11/28/2016 DARRYL GARCIA ASSOCIATE PROGRAM MANAGER Ot M25.511 PAIN IN RIGHT SHOULDER 11/28/2016 DARRYL GARCIA ASSOCIATE PROGRAM MANAGER Ot M41.9 SCOLIOSIS, UNSPECIFIED 12/06/2016 DARRYL GARCIA ASSOCIATE PROGRAM MANAGER Ot M25.511 PAIN IN RIGHT SHOULDER 12/06/2016 DARRYL GARCIA ASSOCIATE PROGRAM MANAGER Ot M41.9 SCOLIOSIS, UNSPECIFIED 01/11/2017 ZURI LEE MD Ot C50.411 MALIG NEOPLM OF UPPER-OUTER QUADRANT OF 01/11/2017 ZURI LEE MD Ot I10 ESSENTIAL (PRIMARY) HYPERTENSION 01/11/2017 ZURI LEE MD Ot I25.10 ATHSCL HEART DISEASE OF [place] CORONARY 01/11/2017 ZURI LEE MD Ot I48.91 UNSPECIFIED ATRIAL FIBRILLATION 01/11/2017 ZURI LEE MD Ot I49.5 SICK SINUS SYNDROME 01/11/2017 ZURI LEE MD Ot L71.9 ROSACEA, UNSPECIFIED 01/11/2017 ZURI LEE MD Ot Z17.0 ESTROGEN RECEPTOR POSITIVE STATUS [ER+] 01/11/2017 ZURI LEE MD Ot Z79.01 CARE HOME (CURRENT) USE OF ANTICOAGULANT 01/11/2017 ZURI LEE MD Ot Z79.811 INDEPENDENT BEAUTY CONSULTANT (CURRENT) USE OF AROMATASE INH 01/11/2017 ZURI LEE MD Ot Z79.899 OTHER INDEPENDENT BEAUTY CONSULTANT (CURRENT) DRUG THERAPY 01/17/2017 ZURI LEE MD Ot C50.411 MALIG NEOPLM OF UPPER-OUTER QUADRANT OF 01/17/2017 ZURI LEE MD Ot I10 ESSENTIAL (PRIMARY) HYPERTENSION 01/17/2017 ZURI LEE MD Ot I25.10 ATHSCL HEART DISEASE OF [place] CORONARY 01/17/2017 ZURI LEE MD Ot I48.91 UNSPECIFIED ATRIAL FIBRILLATION 01/17/2017 ZURI LEE MD Ot I49.5 SICK SINUS SYNDROME 01/17/2017 ZURI LEE MD, Ot L71.9 ROSACEA, UNSPECIFIED 01/17/2017 ZURI LEE MD Ot Z17.0 ESTROGEN RECEPTOR POSITIVE STATUS [ER+] 01/17/2017 ZURI LEE MD, Ot Z79.01 CARE HOME (CURRENT) USE OF ANTICOAGULANT 01/17/2017 ZURI LEE MD, Ot Z79.811 CARE HOME (CURRENT) USE OF AROMATASE INH 01/17/2017 ZURI LEE MD Ot Z79.899 OTHER CARE HOME (CURRENT) DRUG THERAPY 02/07/2017 ZURI LEE MD [...] MD, Ot I25.10 ATHSCL HEART DISEASE OF [place] CORONARY 02/28/2017 ZURI LEE MD, Ot I48.91 UNSPECIFIED ATRIAL FIBRILLATION 02/28/2017 ZURI LEE MD, Ot I49.5 SICK SINUS SYNDROME 02/28/2017 ZURI LEE MD, Ot L71.9 ROSACEA, UNSPECIFIED 02/28/2017 ZURI LEE MD, Ot Z17.0 ESTROGEN RECEPTOR POSITIVE STATUS [ER+] 02/28/2017 ZURI LEE MD, Ot Z79.01 CARE HOME (CURRENT) USE OF ANTICOAGULANT 02/28/2017 ZURI LEE MD, Ot Z79.811 INDEPENDENT BEAUTY CONSULTANT (CURRENT) USE OF AROMATASE INH 02/28/2017 ZURI LEE MD, Ot Z79.899 OTHER INDEPENDENT BEAUTY CONSULTANT (CURRENT) DRUG THERAPY 03/05/2017 ZURI LEE MD, [...] Status Pt. Type Provider Facility Loc./Unit Complaint [id number] 11/30/2016 13:52:00 2016 00:01:00 DIS Outpatient ZURI LEE MD [facility] ONC [id number] 05/23/2016 17:41:00 2015 19:32:00 DIS Emergency SONJA CORRAL MD [facility] ER MEMORY ISSUES/HEADACHE/ VISION ISSUES [id number] 02/17/2016 12:57:00 2015 13:07:00 DIS Outpatient ZURI LEE MD [facility] ONC [id number] 04/06/2016 13:02:00 2015 13:39:00 DIS Outpatient DAYLIN HULL MD [facility] REHAB HOARSENESS [id number] 11/04/2015 08:56:00 2015 00:01:00 DIS Outpatient ZURI LEE MD [facility] ONC [id number] 07/29/2015 12:54:00 2015 00:01:00 DIS Outpatient ZURI LEE MD [facility] ONC [id number] 09/20/2015 13:46:00 2014 23:59:59 CLS Outpatient STACEY CURRY [facility] CARD AFIB,HTN [id number] 07/29/2015 13:25:00 2014 23:59:59 CLS Outpatient AMANDEEP MURGUIA MD [facility] LAB [id number] 07/29/2015 13:27:00 2014 13:27:00 REZA OVALLES MD FACCRAFAL FACP CCDS [facility] LAB [id number] 04/27/2015 12:57:00 2014 00:01:00 DIS Outpatient ZURI LEE MD [facility] ONC [id number] 01/28/2015 13:00:00 2014 00:01:00 DIS Outpatient ZURI LEE MD [facility] ONC [id number] 01/25/2015 08:57:00 2014 23:59:59 CLS Outpatient ZURI LEE MD [facility] RAD HX OF BREAST CA [id number] 07/28/2014 12:50:00 2014 00:01:00 DIS Outpatient ZURI LEE MD [facility] ONC [id number] 04/27/2014 14:19:00 2013 00:01:00 DIS Outpatient ZURI LEE MD [facility] ONC [id number] 02/06/2014 09:19:00 2013 00:01:00 DIS Outpatient STEPHANIE VERA MD [facility] LAB COUMADIN [place],AFIB [id number] 02/27/2014 07:33:00 2013 12:00:00 DIS Inpatient AFSANEH ADLER MD [facility] SURGICAL RIGHT BREAST CANCER [id number] 02/26/2014 14:53:00 2013 23:59:59 CLS Outpatient AFSANEH ADLER MD [facility] PREOP RIGHT BREAST CANCER [id number] 02/06/2014 09:19:00 2013 23:59:59 CLS Outpatient STEPHANIE VERA MD [facility] RAD SATELITE NODULE RT BREAST [id number] 01/21/2014 14:14:00 2013 23:59:59 CLS Outpatient STEPHANIE VERA MD [facility] RAD ABNORMAL MAMMO [id number] 01/15/2014 08:35:00 2013 23:59:59 CLS Outpatient STEPHANIE VERA MD [facility] RAD SCREENING [id number] 12/03/2013 11:56:00 2013 23:59:59 CLS Outpatient STEPHANIE VERA MD [facility] RAD FALL, LEFT SIDE PAIN,PT ON BLOOD THINNERS [id number] 07/21/2013 07:58:00 2012 23:59:59 CLS Outpatient JOSR HONG FACRonald, RAFAL FACP CCDS [facility] CARD CP [id number] 07/16/2013 14:13:00 2012 23:59:59 CLS Outpatient JOSR HONG FACC, RAFAL FACP CCDS [facility] RAD CP [id number] 07/14/2013 12:11:00 2012 23:59:59 CLS Outpatient STEPHANIE VERA MD [facility] RAD CP [id number] 03/01/2017 00:16:00 PEN Preadmit ZURI LEE MD [facility] ONC [id number] 02/07/2017 12:59:00 ACT Outpatient ZURI LEE MD [facility] RAD BREAST CA RT BREAST [id number] 10/31/2016 13:59:00 ACT Outpatient DARRYL GARCIA ASSOCIATE PROGRAM MANAGER [facility] RAD RT SHOULDER PAIN,THORACIC BACK PAIN [id number] 06/09/2016 06:47:00 ACT Outpatient BAISTACEY CHAPARRO ASSOCIATE PROGRAM MANAGER [facility] CARD CHEST DISCOMFORT,CHF,HTN [id number] 05/18/2016 12:55:00 ACT Outpatient ZURI LEE MD [facility] ONC [id number] 02/10/2016 08:41:00 ACT Outpatient ZURI LEE MD [facility] RAD 1 YEAR FOLLOW UP [id number] 02/01/2016 08:22:00 ACT Outpatient MIQUEL CURRYHER L ASSOCIATE PROGRAM MANAGER [facility] CARD HTN,SINUS NODE DYSFUNCTION,EDEMA,HYPOKALEMIA [id number] 01/17/2016 08:29:00 ACT Outpatient BAIMIQUEL CHAPARROHER L ASSOCIATE PROGRAM MANAGER [facility] LAB EDEMA,DYSPNEA [id number] 01/12/2016 14:02:00 ACT Outpatient BAISHANKAR STACEY L ASSOCIATE PROGRAM MANAGER [facility] RAD EDEMA,DYSPNEA [id number] 05/08/2014 00:00:00 Document Registration [id number] 11/19/2012 13:16:00 Document Registration [id number] 10/23/2012 11:11:00 Document Registration [id number] 10/07/2012 09:21:00 Document Registration [id number] 09/17/2012 08:18:00 Document Registration [id number] 07/25/2012 13:35:00 Document Registration [id number] 04/29/2012 13:36:00 Document Registration [id number] 04/17/2012 15:29:00 Document Registration [id number] 01/25/2012 06:53:00 Document Registration [id number] 01/19/2012 08:42:00 Document Registration [id number] 12/20/2011 14:11:00 Document Registration [id number] 09/07/2011 10:11:00 Document Registration [id number] 08/23/2011 13:14:00 Document Registration [id number] 07/25/2011 07:48:00 Document Registration [id number] 07/20/2011 08:14:00 Document Registration [id number] 05/17/2011 13:20:00 Document Registration
[2017-04-17] MEDS ORDERED: warFARin 5 MG (COUMADIN) TAB PO SCH ×2 (14:13→18:00)
== END 2017-04-16 09:51 | disposition home health service (06) ==
LOC: EDUNIT# 20:30 → ER 20:32 → UNDOADMOB 21:55 → 4TH 21:55 → ENPENDDIS 04-16 11:30 → UNDODISOB 04-16 12:06
PROVIDERS: ADMIT Family Medicine; ATTEND Family Medicine
DX: N39.0 Urinary tract infection, site not specified (principal); N28.9 Disorder of kidney and ureter, unspecified; H53.8 Other visual disturbances; R44.1 Visual hallucinations; I10 Essential (primary) hypertension; I48.2 Chronic atrial fibrillation; G47.00 Insomnia, unspecified; Z79.01 Long term (current) use of anticoagulants; Z79.899 Other long term (current) drug therapy
CPT/HCPCS: 36415; 70450; 71010; 80048; 80053; 81000; 84443; 84484; 85025; 85610; 85652; 87088; 93880; 96374; G0378

== ENCOUNTER → 2017-04-19 | Outpatient (CLI) | payer MEDICARE ==
--- OUTSIDE RECORDS SUMMARY | 2015-08-18 02:39 | XMS REPORT | Continuity of Care Document ---
Author Author [facility] Organization [facility] Address Unknown Phone Unavailable Care Team Providers Care Woodworking Craftsman Name Role Phone STEPHANIE VERA MD PCP Insurance Providers Payer Name Policy Number Subscriber Name Relationship Wps Medicare [id number] Tiffanie De Luna 18 Self / Same As Patient Blue Cross [facility] Supp [id number] Tiffanie De Luna 18 Self / Same As Patient Advance Directives Directive Response Recorded Date/Time Advance Directives Yes 02/27/14 2:42pm Health Care Power of Deckhand Crab Boat No 02/27/14 2:42pm Organ Donor No 02/27/14 2:42pm Problems No known problems or medical conditions. Medications Medication Dose Route Sig Days/Qty Instructions Order Date Discontinued Date Status Warfarin Sodium 5 Mg PO IV Tubing Change 01/18/12 Active Warfarin Sodium 2.5 Mg PO SUN,MON,SUN,,Sun01/18/12 Active Ascorbic Acid 500 Mg PO DAILY 01/18/12 Active Vitamin E 400 Unit PO DAILY 01/18/12 Active Amlodipine Besylate (Norvasc 10 Mg) 10 Mg PO DAILY 01/18/12 Active Metoprolol Succinate 100 Mg PO DAILY (1200) 01/18/12 Active Zinc Amino Acid Chelate 50 Mg PO DAILY 01/18/12 Active Losartan Potassium 200 Mg PO DAILY (1800) 01/18/12 Active Cyanocobalamin (Vitamin B-12) 250 Mcg PO DAILY 01/18/12 Active Solifenacin 5 Mg PO DAILY 01/18/12 Active Potassium Chloride 10 Meq PO DAILY 09/17/12 Active Alendronate Sodium 70 Mg PO WEEKLY TAKES ON Saturdays02/26/14 Active Vitamin C/Vitamin E 2 Tab PO DAILY 02/26/14 Active Glucosam/Chondroit/C/Manganese 2 Cap PO DAILY 02/26/14 Active Calcium Carbonate/Vitamin D3 1 Tab PO DAILY 02/26/14 Active Acetaminophen/Hydrocodone Bitart 1 Tab PO EVERY 4HRS PRN PAIN 20 Qty Active Social History Social History Problem Response Recorded Date/Time Alcohol Use Denies Use 02/27/2014 2:42pm Recreational Drug Use No 02/27/2014 2:42pm Recent Foreign Travel No 02/27/2014 2:42pm Recent Infectious Disease Exposure No 02/27/2014 2:42pm Hospitalization with Isolation Denies 02/27/2014 2:42pm Hospital Discharge Instructions No hospital discharge instructions. Plan of Care No plan of care. Functional Status No functional status results. Allergies, Adverse Reactions, Alerts Allergen Type Severity Reaction Status Last Updated No Known Drug Allergies Active 01/18/12 Immunizations Name Given Type Date of Pneumonia Vaccine 09/17/09 Historical Date of Influenza Vaccine 07/25/12 Historical Tetanus Booster (TDap) Less than 5yrs Historical Vital Signs No known vital signs results. Results No known relevant diagnostic tests, laboratory data and/or discharge summary. Procedures No known history of procedures. Encounters Encounter Location Date/Time Discharged Recurring [facility] 01/28/15 1:00pm Registered Clinic [facility] 01/25/15 8:57am
[~2017-04-19] MED LIST changes: +CEPH-507 PO; +EXEM25TA4 PO; +FURO20TA4 PO; +L GA1CAP2 PO; +MELA1TAB20 PO; +OMEP20CA12 PO; +TRAM50TA2 PO
[2017-04-19 10:38] LABS: INR 2.8 (0.8-1.4); PROTHROMBIN TIME PATIENT 29.1 SEC (12.2-14.7)
== END ==
LOC: LAB 07-29 13:27 → HH 10:17
PROVIDERS: ATTEND Family Medicine
DX: N39.0 Urinary tract infection, site not specified (principal); Z79.01 Long term (current) use of anticoagulants; N28.9 Disorder of kidney and ureter, unspecified
CPT/HCPCS: 85610

== ENCOUNTER → 2017-04-27 | Outpatient (CLI) | payer MEDICARE ==
[2017-04-27 10:11] LABS: BILIRUBIN,URINE NEGATIVE (NEGATIVE); KETONES,URINE NEGATIVE (NEGATIVE); LEUKOCYTE ESTERASE ,URINE 1+ (NEGATIVE); NITRITE,URINE NEGATIVE (NEGATIVE); PH,URINE 5 (5-9); PROTEIN,URINE 3+ (NEGATIVE); UROBILINOGEN,URINE NORMAL (NORMAL)
[2017-04-27 10:25] LABS: SQUAMOUS EPITHELIAL CELL,UR RARE /HPF; WBC,URINE 0-2 /HPF
== END ==
LOC: HH 10:06
PROVIDERS: ATTEND Family Medicine
DX: N28.9 Disorder of kidney and ureter, unspecified; N39.0 Urinary tract infection, site not specified; K21.9 Gastro-esophageal reflux disease without esophagitis; I10 Essential (primary) hypertension
CPT/HCPCS: 81000

== ENCOUNTER → 2017-05-11 | Outpatient (CLI) | payer MEDICARE ==
[2017-05-11 11:02] LABS: BILIRUBIN,URINE NEGATIVE (NEGATIVE); KETONES,URINE NEGATIVE (NEGATIVE); LEUKOCYTE ESTERASE ,URINE NEGATIVE (NEGATIVE); NITRITE,URINE NEGATIVE (NEGATIVE); PH,URINE 5 (5-9); PROTEIN,URINE NEGATIVE (NEGATIVE); UROBILINOGEN,URINE NORMAL (NORMAL)
[2017-05-11 11:14] LABS: SQUAMOUS EPITHELIAL CELL,UR RARE /HPF
== END ==
LOC: HH 10:56
PROVIDERS: ATTEND Family Medicine
DX: N39.0 Urinary tract infection, site not specified (principal)
CPT/HCPCS: 81000

== ENCOUNTER → 2017-05-18 | Outpatient (CLI) | payer MEDICARE ==
[2017-05-18 09:48] LABS: INR 2.9 (0.8-1.4); PROTHROMBIN TIME PATIENT 30.4 SEC (12.2-14.7)
== END ==
LOC: HH 09:17
PROVIDERS: ATTEND Ophthalmology
DX: Z79.01 Long term (current) use of anticoagulants (principal)
CPT/HCPCS: 85610

== ENCOUNTER 2017-07-31 10:16 | Outpatient (RCR) | payer MEDICARE ==
[2017-07-31 10:52] LABS: BASOPHILS % (AUTO) 1 % (0-10); EOSINOPHILS % (AUTO) 0 % (0-10); HEMATOCRIT 40 % (35-52); LYMPHOCYTES # (AUTO) 1.1 X 10^3 (1.0-4.0); LYMPHOCYTES % (AUTO) 17 % (12-44); MEAN CORPUSCULAR HEMOGLOBIN 31 PG (25-34); MEAN CORPUSCULAR HGB CONC 32 G/DL (32-36); MEAN CORPUSCULAR VOLUME 96 FL (80-99); MONOCYTES # (AUTO) 0.7 X 10^3 (0.0-1.0); MONOCYTES % (AUTO) 10 % (0-12); NEUTROPHILS # (AUTO) 4.8 X 10^3 (1.8-7.8); NEUTROPHILS % (AUTO) 72 % (42-75); PLATELET COUNT 237 10^3/uL (130-400); RED BLOOD COUNT 4.22 10^6/uL (4.35-5.85); RED CELL DISTRIBUTION WIDTH 14.6 % (10.0-14.5); WHITE BLOOD COUNT 6.7 10^3/uL (4.3-11.0)
[2017-07-31 11:13] LABS: ALBUMIN 4.2 GM/DL (3.2-4.5); BILIRUBIN,TOTAL 0.6 MG/DL (0.1-1.0); CREATININE SERUM 1.13 MG/DL (0.60-1.30); POTASSIUM 3.9 MMOL/L (3.6-5.0); TOTAL PROTEIN 7.5 GM/DL (6.4-8.2)
== END 2017-10-29 | disposition home or self-care (01) ==
LOC: ONC 10:16
PROVIDERS: ATTEND Internal Medicine Hematology & Oncology
DX: C50.411 Malignant neoplasm of upper-outer quadrant of right female breast (principal)
CPT/HCPCS: 36415; 80053; 85025; 99213

== ENCOUNTER → 2017-09-18 | Outpatient (CLI) | payer MEDICARE ==
--- NOTE | 2017-09-18 10:26 | Diagnostic Imaging Report ---
INDICATION: Right hand pain post fall AP, oblique, lateral views of the right hand are obtained. There is osteopenia. There is advanced degenerative change at multiple levels, including significant degenerative change of the wrist joint and first carpal metacarpal joint. There is marked degenerative change throughout the interphalangeal joints. There is no acute fracture or acute bony abnormality. There are vascular calcifications noted. IMPRESSION: Extensive degenerative findings as described above with no acute fracture or acute bony abnormality. Dictated by: Dictated on workstation # [id number]
--- NOTE | 2017-09-18 10:43 | Diagnostic Imaging Report ---
3 views of the right wrist. INDICATION: Right chest pain after a fall. FINDINGS: Advanced degenerative changes are seen in the radiocarpal joint and at the base of the thumb but at the level of the carpal/metacarpal joint level. There is deformity and advanced degenerative changes at the metacarpophalangeal joint of the thumb. No acute fracture or dislocation is evident. IMPRESSION: Advanced degenerative changes. Dictated by: Dictated on workstation # [id number]
== END ==
LOC: RAD 09:56
PROVIDERS: ATTEND Nurse Practitioner Family
DX: M19.041 Primary osteoarthritis, right hand (principal); M19.031 Primary osteoarthritis, right wrist; W19.XXXA Unspecified fall, initial encounter
CPT/HCPCS: 73110; 73130

== ENCOUNTER → 2017-12-04 | Outpatient (CLI) | payer MEDICARE | LOC: CARD 10:44 | PROVIDERS: ATTEND Nurse Practitioner Family | DX: I65.23 Occlusion and stenosis of bilateral carotid arteries (principal); I10 Essential (primary) hypertension; I48.2 Chronic atrial fibrillation; I34.8 Other nonrheumatic mitral valve disorders; I34.0 Nonrheumatic mitral (valve) insufficiency; I07.1 Rheumatic tricuspid insufficiency | CPT/HCPCS: 93306 ==

== ENCOUNTER → 2018-02-14 | Outpatient (CLI) | payer MEDICARE ==
--- NOTE | 2018-02-14 20:53 | Diagnostic Imaging Report ---
INDICATION: Right breast carcinoma. COMPARISON: Correlation is made with prior mammogram from 02/07/2017 and 02/10/2016. EXAMINATION: Left breast 3D digital tomographic views were obtained with [employer] and reviewed on a [employer] workstation. In addition, CAD (computer aided detection) was utilized. CC, MLO and ML views were obtained. FINDINGS: The left breast is heterogeneously dense, limiting the sensitivity of mammography. The parenchymal pattern is stable. There are benign parenchymal and vascular calcifications. No mass or malignant appearing microcalcifications are seen. Axillae are unremarkable. IMPRESSION: BI-RADS 2. No mammographic features suspicious for malignancy are identified. ACR BI-RADS Category 2: Benign findings. Result letter will be mailed to the patient. Note: At least 10% of breast cancer is not imaged by mammography. Dictated by: Dictated on workstation # [id number]
== END ==
LOC: RAD 12:50
PROVIDERS: ATTEND Internal Medicine Hematology & Oncology
DX: C50.411 Malignant neoplasm of upper-outer quadrant of right female breast (principal)

== ENCOUNTER 2018-02-26 10:15 | Outpatient (RCR) | payer MEDICARE ==
[2018-02-26 10:45] LABS: BASOPHILS % (AUTO) 1 % (0-10); EOSINOPHILS % (AUTO) 1 % (0-10); HEMATOCRIT 37 % (35-52); HEMOGLOBIN 12.2 G/DL (11.5-16.0); LYMPHOCYTES # (AUTO) 0.9 X 10^3 (1.0-4.0); LYMPHOCYTES % (AUTO) 20 % (12-44); MEAN CORPUSCULAR HEMOGLOBIN 31 PG (25-34); MEAN CORPUSCULAR HGB CONC 33 G/DL (32-36); MEAN CORPUSCULAR VOLUME 96 FL (80-99); MEAN PLATELET VOLUME 9.4 FL (7.4-10.4); MONOCYTES # (AUTO) 0.5 X 10^3 (0.0-1.0); MONOCYTES % (AUTO) 11 % (0-12); NEUTROPHILS # (AUTO) 3.2 X 10^3 (1.8-7.8); NEUTROPHILS % (AUTO) 67 % (42-75); PLATELET COUNT 272 10^3/uL (130-400); RED BLOOD COUNT 3.88 10^6/uL (4.35-5.85); RED CELL DISTRIBUTION WIDTH 13.8 % (10.0-14.5); WHITE BLOOD COUNT 4.7 10^3/uL (4.3-11.0)
[2018-02-26 11:03] LABS: ALBUMIN 4.2 GM/DL (3.2-4.5); BILIRUBIN,TOTAL 0.6 MG/DL (0.1-1.0); CALCIUM 9.5 MG/DL (8.5-10.1); CREATININE SERUM 1.02 MG/DL (0.60-1.30); POTASSIUM 3.8 MMOL/L (3.6-5.0); TOTAL PROTEIN 7.2 GM/DL (6.4-8.2)
== END 2018-05-27 | disposition home or self-care (01) ==
LOC: ONC 10:15
PROVIDERS: ATTEND Internal Medicine Hematology & Oncology
DX: C50.411 Malignant neoplasm of upper-outer quadrant of right female breast (principal); Z17.0 Estrogen receptor positive status [ER+]; I10 Essential (primary) hypertension; I48.91 Unspecified atrial fibrillation; I25.10 Atherosclerotic heart disease of native coronary artery without angina pectoris; L71.9 Rosacea, unspecified; I49.5 Sick sinus syndrome; Z79.01 Long term (current) use of anticoagulants; Z79.811 Long term (current) use of aromatase inhibitors; Z79.899 Other long term (current) drug therapy
CPT/HCPCS: 36415; 80053; 85025; 99213

== ENCOUNTER → 2018-02-26 | Outpatient (CLI) | payer MEDICARE ==
[2018-02-26 11:26] LABS: INR 3.2 (0.8-1.4); PROTHROMBIN TIME PATIENT 32.2 SEC (12.2-14.7)
== END ==
LOC: LAB 10:43
PROVIDERS: ATTEND Internal Medicine Cardiovascular Disease
DX: Z51.81 Encounter for therapeutic drug level monitoring (principal); I48.2 Chronic atrial fibrillation; Z79.01 Long term (current) use of anticoagulants
CPT/HCPCS: 36415; 85610

== ENCOUNTER 2018-08-26 13:52 | Outpatient (RCR) | payer MEDICARE ==
[2018-08-26 14:07] LABS: BASOPHILS % (AUTO) 1 % (0-10); EOSINOPHILS % (AUTO) 1 % (0-10); HEMATOCRIT 39 % (35-52); HEMOGLOBIN 12.5 G/DL (11.5-16.0); LYMPHOCYTES # (AUTO) 1.1 X 10^3 (1.0-4.0); LYMPHOCYTES % (AUTO) 17 % (12-44); MEAN CORPUSCULAR HEMOGLOBIN 32 PG (25-34); MEAN CORPUSCULAR HGB CONC 32 G/DL (32-36); MEAN CORPUSCULAR VOLUME 98 FL (80-99); MEAN PLATELET VOLUME 9.5 FL (7.4-10.4); MONOCYTES # (AUTO) 0.5 X 10^3 (0.0-1.0); MONOCYTES % (AUTO) 8 % (0-12); NEUTROPHILS # (AUTO) 4.8 X 10^3 (1.8-7.8); NEUTROPHILS % (AUTO) 75 % (42-75); PLATELET COUNT 251 10^3/uL (130-400); RED CELL DISTRIBUTION WIDTH 14.4 % (10.0-14.5); WHITE BLOOD COUNT 6.4 10^3/uL (4.3-11.0)
[2018-08-26 14:26] LABS: ALBUMIN 4.5 GM/DL (3.2-4.5); BILIRUBIN,TOTAL 0.8 MG/DL (0.1-1.0); CALCIUM 9.9 MG/DL (8.5-10.1); CREATININE SERUM 0.98 MG/DL (0.60-1.30); POTASSIUM 3.9 MMOL/L (3.6-5.0); TOTAL PROTEIN 7.7 GM/DL (6.4-8.2)
== END 2018-11-24 | disposition home or self-care (01) ==
LOC: ONC 13:52
PROVIDERS: ATTEND Internal Medicine Hematology & Oncology
DX: C50.411 Malignant neoplasm of upper-outer quadrant of right female breast (principal); Z17.0 Estrogen receptor positive status [ER+]; I10 Essential (primary) hypertension; I48.91 Unspecified atrial fibrillation; I25.10 Atherosclerotic heart disease of native coronary artery without angina pectoris; L71.9 Rosacea, unspecified; I49.5 Sick sinus syndrome; Z79.01 Long term (current) use of anticoagulants; Z79.811 Long term (current) use of aromatase inhibitors; Z79.899 Other long term (current) drug therapy
CPT/HCPCS: 36415; 80053; 85025; 99213

== ENCOUNTER → 2018-08-26 | Outpatient (CLI) | payer MEDICARE ==
[2018-08-27 04:43] LABS: POTASSIUM 3.9 MMOL/L (3.6-5.0)
[2018-08-27 04:44] LABS: ALBUMIN 4.5 GM/DL (3.2-4.5); BILIRUBIN,TOTAL 0.8 MG/DL (0.1-1.0); CALCIUM 9.9 MG/DL (8.5-10.1); CREATININE SERUM 0.98 MG/DL (0.60-1.30); TOTAL PROTEIN 7.7 GM/DL (6.4-8.2)
[2018-08-27 04:49] LABS: HEMATOCRIT 39 % (35-52); HEMOGLOBIN 12.5 G/DL (11.5-16.0); MEAN CORPUSCULAR HEMOGLOBIN 32 PG (25-34); MEAN CORPUSCULAR HGB CONC 32 G/DL (32-36); MEAN CORPUSCULAR VOLUME 98 FL (80-99); RED BLOOD COUNT 3.94 10^6/uL (4.35-5.85); WHITE BLOOD COUNT 6.4 10^3/uL (4.3-11.0)
[2018-08-27 04:50] LABS: BASOPHILS % (AUTO) 1 % (0-10); EOSINOPHILS % (AUTO) 1 % (0-10); LYMPHOCYTES # (AUTO) 1.1 X 10^3 (1.0-4.0); LYMPHOCYTES % (AUTO) 17 % (12-44); MEAN PLATELET VOLUME 9.5 FL (7.4-10.4); MONOCYTES # (AUTO) 0.5 X 10^3 (0.0-1.0); MONOCYTES % (AUTO) 8 % (0-12); NEUTROPHILS # (AUTO) 4.8 X 10^3 (1.8-7.8); NEUTROPHILS % (AUTO) 75 % (42-75); PLATELET COUNT 251 10^3/uL (130-400); RED CELL DISTRIBUTION WIDTH 14.4 % (10.0-14.5)
== END ==
LOC: LAB 14:04
PROVIDERS: ATTEND Family Medicine
DX: I10 Essential (primary) hypertension (principal); M81.0 Age-related osteoporosis without current pathological fracture; Z79.899 Other long term (current) drug therapy
CPT/HCPCS: 36415; 80053; 80061; 82306; 84443; 85025

== ENCOUNTER → 2018-12-17 | Outpatient (CLI) | payer MEDICARE ==
--- NOTE | 2018-12-17 10:35 | Diagnostic Imaging Report ---
INDICATION: Postmenopausal screening for osteoporosis. COMPARISON: 01/15/2014. FINDINGS: AP Spine L1-L4: [BMD (g/cm2): 0.884] [T-Score: -2.6] [Z-Score: -0.2] [BMD Previous: 0.880] [BMD % Change: 0.5] LT Hip Neck: [BMD (g/cm2): 0.803] [T-Score: -1.7] [Z-Score: 1.2] LT Hip Total: [BMD (g/cm2):0.790] [T-Score:-1.7] [Z-Score: 1.1] [BMD Previous: 0.788] [BMD % Change: N/A] RT Hip Neck: [BMD (g/cm2):0.756] [T-Score:-2.0] [Z-Score:0.9] RT Hip Total: [BMD (g/cm2):0.791] [T-score:-1.7] [Z-Score:1.2] [BMD Previous:0.802] [BMD % Change:N/A] *Indicates significant change from prior examination based on 95% confidence level. World Health Organization criteria for BMD interpretation classify patients as Normal (T-score at or above -1.0), Osteopenic (T-score between -1.0 and -2.5) or Osteoporotic (T-score at or below -2.5). LIMITATIONS AND MODIFICATION: None. FRACTURE RISK (FRAX SCORE): The ten year probability of (%): Major Osteoporotic Fracture: [12] Hip Fracture: [4.0] IMPRESSION: 1. Osteoporosis. 2. No Significant change in bone mineral density since prior examination. 3. See below National Osteoporosis Foundation guidelines on when to potentially initiate pharmacologic therapy. Based on the National Osteoporosis Foundation Guidelines, pharmacologic treatment should be initiated in any of the following, unless clinical conditions suggest otherwise: * Any patient with prior fragility fracture of the hip or vertebrae. A spine fracture indicates 5X risk for subsequent spine fracture and 2X risk for subsequent hip fracture. * Osteoporosis (T-score <-2.5). * Postmenopausal women and men age 50 and older with low bone mass/osteopenia (T-score between -1.0 and -2.5) by DXA and 10-year major osteoporotic fracture greater than 20% or a 10-year probability of hip fracture greater than 3%. These fracture risks are supplied above in the FRAX score, if applicable. * Clinician judgement and/or patient preferences may indicate treatment for people with 10-year fracture probabilities above or below these levels. Dictated by: Dictated on workstation # [id number]
== END ==
LOC: RAD 09:48
PROVIDERS: ATTEND Family Medicine
DX: Z13.820 Encounter for screening for osteoporosis (principal); M81.0 Age-related osteoporosis without current pathological fracture; Z78.0 Asymptomatic menopausal state
CPT/HCPCS: 77080